=== PATIENT | female | born 1940 | race Caucasian/White ===

== ENCOUNTER 2017-04-12 13:11 | Inpatient (IN) | payer MEDICARE ==
[~2017-04-12] VITALS: Ht 167.6 cm; Wt 80.5 kg
[~2017-04-12 13:11] MED LIST: AXERT6.25 MG PO; CARISOPRODOL 3350 MG PO; CELEXA40 MG PO; HYDROCODON-ACE1 EAC8 PO; PHENERGAN50 MG PO; PRILOSEC 20 MG20 MG PO; TOPRIMATE PO
[2017-04-12 13:29] VITALS: BP 168/86
[2017-04-12] MEDS ORDERED: TOPAMAX 100 MG100 MG PO (13:33)
[2017-04-12 15:38] LABS: HEMATOCRIT 50.5 % (37.0-47.0); HEMOGLOBIN 16.4 gm/dL (12.0-15.0); MCH 30.5 pg (26.0-34.0); MCHC 32.4 g/dL (28.0-37.0); MCV 94.3 fL (80.0-100.0); MPV 6.8 fl. (7.2-11.1); NUCLEATED RBCS 0 /100WBC; PLATELET COUNT* 390 thou/uL (150-400); RBC 5.36 mil/uL (4.20-5.00); RDW-CV 13.8 % (10.5-14.5); WBC 16.4 thou/uL (4.0-11.0)
[2017-04-12 15:49] LABS: APTT 28.2 Seconds (25.0-31.3); INR 1.1; PROTIME 10.8 Seconds (9.20-11.50)
[2017-04-12 15:52] LABS: CALCIUM 9.2 mg/dL (8.5-10.1); POTASSIUM 3.7 mmol/L (3.5-5.1)
[2017-04-12 15:55] LABS: ALBUMIN 4.1 g/dL (3.4-5.0); TOTAL BILIRUBIN 0.2 mg/dL (<0.1-1.0); TOTAL PROTEIN 8.1 g/dL (6.4-8.2)
[2017-04-12 16:06] LABS: ABSOLUTE LYMPHOCYTES 1.1 thou/uL (0.8-5.3); ABSOLUTE MONOCYTES 0.7 thou/uL (0.0-1.2); ABSOLUTE NEUTROPHILS 14.6 thou/uL (1.6-8.1)
[2017-04-12 16:08] LABS: PLATELET ESTIMATE ADEQUATE
[2017-04-12 21:50] VITALS: BP 164/107
[2017-04-13] VITALS (18 sets, daily range): BP systolic 97–159; BP diastolic 67–91
--- NOTE | 2017-04-13 01:08 | NUR ---
PATIENT ADMITTED TO UNIT AT APPROXIMATELY 2130. VSS, ALTHOUGH PULSE IS TACHY AND SLIGHTLY DECREASES 02 SATURATION. PATIENT PLACED ON 2L 02 VIA NASAL CANNULA. PATIENT ORIENTED TO ROOM AND POLICIES. FALL EDUCATION GIVEN AND FALL AGREEMENT SIGNED. PATIENT VERBALIZED UNDERSTANDING. ADMISSION ROUTINES IN PROGRESS AND ASSESSMENT CHARTED. NG TUBE TO RIGHT NARE IN PLACE TO LOW INTERMITTENT SUCTION WITH LIGHT GREEN COLORED DRAINAGE. PATIENT NEGATIVE FOR SEPSIS. PATIENT INSTRUCTED TO USE CALL LIGHT WHEN NEEDING ASSISTANCE. HOURLY ROUNDS TO BE MADE. WILL CONTINUE WITH PLAN OF CARE. NURSING TO CONTINUE MONITORING.
--- NOTE | 2017-04-13 03:30 | NUR ---
PATIENT HAS HAD C/O OF INCREASING ABDOMINAL PAIN AND TENDERNESS. BP DECREASED AT 97/73. PULSE TACHY AT 138. TEMP 97.4 AXILLARY AND DECREASED 02 SATURATION OF 88% ON 2L AND INCREASED OXYGEN. RESPIRATIONS 20. PATIENTS EXTREMITIES WERE COLD TO TOUCH AND LIPS LOOKED ASHY BLUE IN COLOR. PATIENTS LOWER ABDOMINAL AND STACEY AREA WERE A DARK PURPLE BLOTCHY COLOR. NG TO RIGHT NARE IN PLACE AND PATIENT HAS REMAINED NPO. RAPID RESPONSE WAS CALLED AT APPROXIMATELY 0315 D/T CHANGE IN CONDITION. DR. FISHER NOTIFIED OF PATIENT CHANGE IN CONDITION. NEW ORDERS GIVEN FOR LABS, KUB, FLUIDS AND FOR PATIENT TO BE TRANSFERRED TO ICU. PATIENT WAS TRANSFERRED TO ICU AT APPROXIMATELY 0400. PATIENTS NOTIFIED.
[2017-04-13 04:18] LABS: MCH 30.3 pg (26.0-34.0); MCHC 31.6 g/dL (28.0-37.0); MCV 95.9 fL (80.0-100.0); MPV 7.4 fl. (7.2-11.1); NUCLEATED RBCS 0 /100WBC; RBC 6.77 mil/uL (4.20-5.00); RDW-CV 14.9 % (10.5-14.5); WBC 22.7 thou/uL (4.0-11.0)
[2017-04-13 04:34] LABS: HEMOGLOBIN 20.5 gm/dL (12.0-15.0); PLATELET COUNT* 541 thou/uL (150-400)
[2017-04-13 04:36] LABS: HEMATOCRIT 64.8 % (37.0-47.0)
[2017-04-13 05:07] LABS: BE -17.3 mmol/L (-2 to +3); PO2 102.8 mmHg (75.0-100.0)
[2017-04-13 05:09] LABS: HCO3 9.7 mmol/L (22.0-26.0); pH 7.157 (7.340-7.450)
[2017-04-13 05:26] LABS: CALCIUM 8.7 mg/dL (8.5-10.1); POTASSIUM 4.2 mmol/L (3.5-5.1)
[2017-04-13 05:30] LABS: CREATININE 2.1 mg/dL (0.6-1.3)
[2017-04-13 05:55] LABS: CK-MB MASS 1.1 ng/mL (<0.5-3.6)
[2017-04-13 06:17] LABS: URINE BILIRUBIN NEGATIVE (Negative); URINE BLOOD 1+ (Negative); URINE CLARITY CLEAR; URINE COLOR YELLOW; URINE GLUCOSE-RANDOM NEGATIVE (Negative); URINE KETONES TRACE (Negative); URINE LEUKOCYTES-REFLEX NEGATIVE (Negative); URINE NITRITE-REFLEX NEGATIVE (Negative); URINE PROTEIN 1+ (Negative); URINE UROBILINOGEN 0.2 E.U./dl (0.2-1.0)
[2017-04-13 06:24] LABS: ABSOLUTE LYMPHOCYTES 0.7 thou/uL (0.8-5.3); ABSOLUTE MONOCYTES 1.6 thou/uL (0.0-1.2); ABSOLUTE NEUTROPHILS 20.4 thou/uL (1.6-8.1); ANISOCYTOSIS 1+; PLATELET ESTIMATE INCREASED; POIKILOCYTOSIS 1+
[2017-04-13 06:34] LABS: BACTERIA-REFLEX 1-9 Few /HPF (None Seen); CRYSTALS None Seen /LPF (None Seen); FINE GRANULAR CASTS 0-3 Few /LPF (None Seen); HYALINE CASTS 4-10 Moderate /LPF (None Seen); MUCUS 4-6 Moderate strn/LPF (None Seen); SQUAMOUS 0-3 Few /LPF (0-3); URINE RBC 3-10 Few /HPF (0-2); URINE WBC-REFLEX 0-5 Rare /HPF (0-5)
--- NOTE | 2017-04-13 07:38 | NUR ---
PT TRANSFERRED TO ICU BED [address]POKE [address] CASTRO, SURGERY RESIDENT, ORDERS RECEIVED FOR MULTIPLE LABS AND IV BENADRYL X1, GIVEN ORDERED. CRITICAL ABG RESULTS AND MULTIPLE OTHER CRITICAL RESULTS WERE CALLED TO DR FISHER, ORDERS RECEIVED. PT RECEIVED 2L NS BOLUS AND 2 AMPS BICARB IVP. SEPSIS PROTOCOL INITIATED. CONSENT OBTAINED FOR PLACEMENT OF CENTRAL LINE. DR CASTRO IN EARLY THIS AM TO EVALUATE PTS STATUS, DECISION MADE TO TAKE PT TO OR FOR EXPLORATORY LAPAROTOMY HE DISCOVERED THE DISTENTION AND FIRMNESS OF HER ABDOMEN HAD INCREASED SINCE HIS PREVIOUS EXAMINATION. DR GARCIA ARRIVED TO UNIT SHORTLY THEREAFTER, SURGICAL CONSENT OBTAINED. PT RATED ABD PAIN 10/10, TREATED WITH PRN FENTANYL WITH LITTLE RELIEF OBTAINED. 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 PT LEFT THE ICU AT APPROXIMATELY 0715. AND DAUGHTER AT BEDSIDE, COMFORT AND EDUCATION GIVEN.
--- NOTE | 2017-04-13 07:57 | NUR ---
PT LEFT FOR SURGERY AT 0730. WILL INITIATE SEPSIS PROTOCOL UPON ARRIVAL BACK TO THE ICU. CENTRAL LINE WILL BE PLACED IN THE OR.
[2017-04-13 10:12] LABS: APTT 34.2 Seconds (25.0-31.3); INR 1.2; PROTIME 11.5 Seconds (9.20-11.50)
[2017-04-13 10:42] LABS: MAGNESIUM 1.6 mg/dL (1.8-2.4); PHOSPHORUS* 4.7 mg/dL (2.5-4.9)
[2017-04-13 11:54] LABS: HCO3 15.1 mmol/L (22.0-26.0); PCO2 31.8 mmHg (35.0-45.0); PO2 87.1 mmHg (75.0-100.0)
[2017-04-13 11:55] LABS: pH 7.294 (7.340-7.450)
--- NOTE | 2017-04-13 12:06 | NUR ---
INTERDISICPLINARY ROUNDS: MET WITH PT, SPOUSE AND 2 CHILDREN. PT LIVES WITH SPOUSE. SHE HAS BEEN FAIRLY INDEPENDENT WITH ADLS AT HOME. SHE IS ABLE TO AMBULATE WITH WALKER, SHOWER HERSELF. SPOUSE ASSISTS WITH DRESSING. SPOUSE DOES COOKING, LIGHT HOUSEKEEPING AND DRIVING. SPOUSE STATES PT CAN BE 'NEEDY.' THEY ARE INTERESTED IN SNF. PT HAS BEEN TO SNF IN THE PAST AT THE [facility] BUT PREFERS NOT TO RETURN THERE. SPOUSE HAS BEEN TO [place]. GAVE OPTIONS AND THEY ARE INTERESTED IN 1) [facility] 2) [facility]. CALLED AND FAXED INITIAL REFERRAL TO [facility]. WILL FOLLOW
[2017-04-13 12:43] LABS: ABSOLUTE BASOPHILS 0.1 thou/uL (0.0-0.2); ABSOLUTE LYMPHOCYTES 1.6 thou/uL (0.8-5.3); ABSOLUTE MONOCYTES 2.1 thou/uL (0.0-1.2); ABSOLUTE NEUTROPHILS 16.2 thou/uL (1.6-8.1); BASOPHILS 0.3 %; HEMATOCRIT 50.3 % (37.0-47.0); LYMPHOCYTES 8.1 %; MCH 30.8 pg (26.0-34.0); MCHC 32.7 g/dL (28.0-37.0); MCV 94.1 fL (80.0-100.0); MONOCYTES 10.5 %; MPV 6.8 fl. (7.2-11.1); NUCLEATED RBCS 0 /100WBC; POLYS 81.1 %; RBC 5.34 mil/uL (4.20-5.00); RDW-CV 14.1 % (10.5-14.5); WBC 19.9 thou/uL (4.0-11.0)
[2017-04-13 12:46] LABS: HEMOGLOBIN 16.4 gm/dL (12.0-15.0); PLATELET COUNT* 375 thou/uL (150-400)
[2017-04-13 12:55] LABS: ALBUMIN 2.2 g/dL (3.4-5.0); CALCIUM 6.8 mg/dL (8.5-10.1); CREATININE 1.8 mg/dL (0.6-1.3); POTASSIUM 4.1 mmol/L (3.5-5.1); TOTAL BILIRUBIN 0.2 mg/dL (<0.1-1.0)
--- NOTE | 2017-04-13 17:04 | NUR ---
PT SEES DR. DAVID US GYNECOLOGY-ONCOLOGY AT [facility].
[2017-04-13 17:27] LABS: ABSOLUTE LYMPHOCYTES 0.9 thou/uL (0.8-5.3); ABSOLUTE MONOCYTES 1.5 thou/uL (0.0-1.2); ABSOLUTE NEUTROPHILS 13.9 thou/uL (1.6-8.1); BASOPHILS 0.1 %; HEMATOCRIT 48.3 % (37.0-47.0); LYMPHOCYTES 5.5 %; MCHC 33.2 g/dL (28.0-37.0); MCV 93.6 fL (80.0-100.0); MONOCYTES 9.2 %; MPV 6.9 fl. (7.2-11.1); NUCLEATED RBCS 0 /100WBC; PLATELET COUNT* 311 thou/uL (150-400); POLYS 85.2 %; RBC 5.16 mil/uL (4.20-5.00); RDW-CV 14.3 % (10.5-14.5); WBC 16.3 thou/uL (4.0-11.0)
[2017-04-13 17:37] LABS: ALBUMIN 2.3 g/dL (3.4-5.0); CALCIUM 7.3 mg/dL (8.5-10.1); CREATININE 1.9 mg/dL (0.6-1.3); POTASSIUM 4.2 mmol/L (3.5-5.1); TOTAL BILIRUBIN 0.1 mg/dL (<0.1-1.0); TOTAL PROTEIN 5.1 g/dL (6.4-8.2)
--- NOTE | 2017-04-13 18:22 | NUR ---
PT'S ASSESSMENT CHARTED. SHE IS TACHYCARDIC ANYWHERE FROM 120-140. IV BOLUS GIVEN. RECTAL TYLENOL GIVEN X1 FOR A T-MAX OF 102.1. PAIN 8-10/10 NOT CONTROLLED WITH PRN FENTANYL. RESPIRATORY STATUS IMPROVED FROM 10L VIA MASK TO HIGH FLOW CANNULA. PT'S O2 SATURATION 96-99% PER THE HIGH FLOW CANNULA. PT DENIES SOA. BLOOD PRESSURE'S ARE IMPROVING WITH IV BOLUS, HR AT 120 CURRENTLY. NO OTHER COMPLAINTS. COKER WITH LITTLE OUTPUT. CHAMP DRAIN 110 BETWEEN THE 2. WILL CONTINUE TO MONITOR.
[2017-04-14] VITALS (17 sets, daily range): BP systolic 139–168; BP diastolic 47–91
[2017-04-14 05:03] LABS: BE -8.6 mmol/L (-2 to +3); HCO3 15.3 mmol/L (22.0-26.0); PCO2 28.5 mmHg (35.0-45.0); PO2 81.4 mmHg (75.0-100.0); pH 7.349 (7.340-7.450)
--- NOTE | 2017-04-14 06:00 | NUR ---
PATIENT SLOWLY PROGRESSING TOWARDS GOALS. ABD WOUND SITE INTACT. J TUBE DRAINAGE SEROSANGUINEOUS. ABD SOFT. PT CONTINUES TO HAVE PAIN AND STATES THAT THE PAIN MEDICATION IS NOT HELPING DISPITE PAIN MEDICATION BEING GIVEN Q2H. PT TEMP STAYED BETWEEN IN THE 100.0-100.8. NSR. O2 WNL. WILL CONTINUE TO MONITOR CLOSELY. CALL LIGHT WITH PT, FALL PRECAUTIONS IN PLACE.
[2017-04-14 06:29] LABS: ALBUMIN 1.9 g/dL (3.4-5.0); CALCIUM 6.3 mg/dL (8.5-10.1); CREATININE 1.4 mg/dL (0.6-1.3); POTASSIUM 3.9 mmol/L (3.5-5.1); TOTAL BILIRUBIN 0.2 mg/dL (<0.1-1.0); TOTAL PROTEIN 5.1 g/dL (6.4-8.2)
[2017-04-14 07:51] LABS: ABSOLUTE LYMPHOCYTES 1.2 thou/uL (0.8-5.3); ABSOLUTE NEUTROPHILS 12.3 thou/uL (1.6-8.1); BASOPHILS 0.3 %; HEMATOCRIT 42.2 % (37.0-47.0); LYMPHOCYTES 7.8 %; MCH 30.5 pg (26.0-34.0); MCHC 32.8 g/dL (28.0-37.0); MCV 92.9 fL (80.0-100.0); MONOCYTES 12.7 %; MPV 6.8 fl. (7.2-11.1); NUCLEATED RBCS 0 /100WBC; PLATELET COUNT* 267 thou/uL (150-400); POLYS 79.2 %; RBC 4.55 mil/uL (4.20-5.00); RDW-CV 14.1 % (10.5-14.5); WBC 15.5 thou/uL (4.0-11.0)
[2017-04-14 07:52] LABS: HEMOGLOBIN 13.9 gm/dL (12.0-15.0)
--- NOTE | 2017-04-14 12:44 | CON ---
[address] [address] CONSULTATION Name: MAXIME JESSICA Room: [address] IN M.R.#: [id number] Admission: 04/12/17 Attend Phys: Shaheen Galicia MD Discharge: Date of : 41 Report #: [id number] THIS REPORT FOR: //name// CC: Shaheen Cherry Page DATE OF SERVICE: 04/13/2017 INFECTIOUS DISEASE CONSULTATION ATTENDING PHYSICIAN: Shaheen Galicia MD REASON FOR EVALUATION: Postoperative fevers with lactic acidemia. HISTORY OF PRESENT ILLNESS: Chart reviewed, patient examined. This is a 76-year-old woman with fairly significant medical history, has issues with irritable bowel syndrome, who presented with a roughly 1-2 week history of abdominal related pain. Apparently, this was associated with constipation. It is notable she has had variability in her bowel movements, had gone several days without movement. She was evaluated including imaging, which raised question of a distal small-bowel obstruction. She was found to have leukocytosis, lactic acidemia actually had improved with hydration due to absence of resolution of signs and symptoms. She was taken to surgery, underwent lysis of adhesions. Initial report, there was no evidence of compromise of the bowel wall. Postop course was complicated by some fevers, increase in lactic acid and continued elevation of white blood cells. She was empirically started on combination antimicrobial therapy including ciprofloxacin, metronidazole, and vancomycin. She is seen postop and somnolent. Discussed with her family, it is not clear that she has had significant fevers prior to this. ALLERGIES: LISTED TO PENICILLINS. CURRENT MEDICATIONS: Include the above-noted antibiotics, ciprofloxacin, vancomycin and Flagyl, p.r.n. analgesics, antiemetics, and pantoprazole. PAST MEDICAL HISTORY: Hypertension, history of migraines, severe arthritis, previous vulvar cancer with radiation, history of depression. SOCIAL HISTORY: Nonsmoker. Occasional ethanol. FAMILY HISTORY: Noncontributory. REVIEW OF SYSTEMS: Not reliably obtained. PHYSICAL EXAMINATION: GENERAL: She appears quite ill, acute on chronic. [place] [address] CONSULTATION Name: MAXIME JESSICA Room: [address] [place] [facility]#: [id number] Admission: 04/12/17 Attend Phys: Shaheen Galicia MD Discharge: Date of : 41 Report #: [id number] opens her eyes. There is very little effort to communicate. VITAL SIGNS: Temperature 99, pulse 137, respirations 21, blood pressure 118/78. SKIN: Warm, dry. No appreciated rashes. NECK: Supple. LUNGS: Scattered coarse breath sounds. HEART: Regular. I do not appreciate a murmur. ABDOMEN: Notable for a wound VAC in place, has bilateral CHAMP drains. GENITOURINARY: Deferred. RECTAL: Deferred. LABORATORY DATA: ABGs: pH 7.294, pCO2 of 31.8, pO2 of 87.1 that is on Ventimask at 7 liters. Lactic acid 4.2. Chest x-ray, some mild pulmonary congestion and interstitial infiltrates in the left perihilar region, atelectasis or infiltrate in the left lung base. Blood cultures sterile thus far. CT abdomen and pelvis preop showed dilated fluid-filled small bowel loops to the distal small bowel and question of obstruction, this was confirmed at surgery. ASSESSMENT: Fevers in a patient with a diagnosis of small bowel obstruction, although there is no evidence of peritonitis or breach in the BAL at least during the time of surgery. We will continue empiric antimicrobial therapy due note she is at risk for other infectious complications, especially with her altered mental status, worried about aspiration, and pneumonitis. She is requiring excess supplemental oxygen at this point. I do not think she has got a reasonable expectation of a good cough response to clear. We will have to monitor expectantly and encourage her, when she is able, to add incentive spirometer and also monitor for other evidence of pyogenic infection. She should have a decent coverage at this point. <ELECTRONICALLY SIGNED> By: Sagar Sandhu MD 04/14/17 1244 1247 [id number] Sandhu MD /nt
--- NOTE | 2017-04-14 17:31 | EKG ---
[place] [address] ELECTROCARDIOGRAM REPORT Name: MAXIME JESSICA Room: [address] ADM IN .R.#: [id number] Admission: 04/12/17 Attend Phys: Shaheen Galicia MD Discharge: Date of : 41 Report #: [id number] THIS REPORT FOR: //name// [facility] Test Date: 2017-04-13 Test Time: 03:28:50 Pat Name: MAXIME JESSICA Department: Room: [address] Gender: F Greens Cutter: [facility] : 1940 Requested By: Shaheen Galicia Order Number: [id number] Reading MD: Andrea Desir Measurements Intervals Anabel Rate: 136 P: 2 OK: 130 QRS: 51 QRSD: 83 T: 44 QT: 296 QTc: 446 Interpretive Statements Sinus tachycardia ST elev, probable normal early repol pattern No previous ECG available for comparison Electronically Signed On 04-14-2017 17:31:23 YARDAGE CONTROL OPERATOR FORMING by Andrea Desir [email or web address] <ELECTRONICALLY SIGNED> By: Andrea Desir MD, [facility] 04/14/17 1731 0328 0328 Andrea Desir MD, FACC /EPI
--- NOTE | 2017-04-14 17:41 | EKG ---
[place] [address] ELECTROCARDIOGRAM REPORT Name: MAXIME JESSICA Room: [address] ADM IN .R.#: [id number] Admission: 04/12/17 Attend Phys: Shaheen Galicia MD Discharge: Date of : 41 Report #: [id number] THIS REPORT FOR: //name// [facility] Test Date: 2017-04-14 Test Time: 12:17:29 Pat Name: MAXIME EJSSICA Department: Room: [address] Gender: F Trade Show Manager: abby : 1940 Requested By: Andrea Desir Order Number: [id number] Chevy MD: Andrea Desir Measurements Intervals [place] Rate: 184 P: -23 IL: 56 QRS: 49 QRSD: 75 T: 242 QT: 223 QTc: 391 Interpretive Statements Supraventricular tachycardia Abnormal R-wave progression, early transition Repolarization abnormality, prob rate related No previous ECG available for comparison Electronically Signed On 04-14-2017 17:41:34 PAYMENT ANALYST by Andrea Desir [email or web address] <ELECTRONICALLY SIGNED> By: Andrea Desir MD, [facility] 04/14/17 1741 1217 121 Andrea Desir MD, [facility] /EPI
[2017-04-14 22:09] LABS: OBSERVED RETIC COUNT 1.5 % (0.6-2.6)
[2017-04-15] VITALS (14 sets, daily range): BP systolic 115–159; BP diastolic 51–94
[2017-04-15 03:29] LABS: NUCLEATED RBCS 0 /100WBC; WBC 9.9 thou/uL (4.0-11.0)
[2017-04-15 03:30] LABS: ABSOLUTE LYMPHOCYTES 1.1 thou/uL (0.8-5.3); ABSOLUTE MONOCYTES 0.9 thou/uL (0.0-1.2); ABSOLUTE NEUTROPHILS 7.8 thou/uL (1.6-8.1); BASOPHILS 0.1 %; HEMATOCRIT 33.5 % (37.0-47.0); HEMOGLOBIN 11.2 gm/dL (12.0-15.0); LYMPHOCYTES 11.1 %; MCH 31.2 pg (26.0-34.0); MCHC 33.5 g/dL (28.0-37.0); MCV 93.3 fL (80.0-100.0); MONOCYTES 9.3 %; MPV 6.9 fl. (7.2-11.1); PLATELET COUNT* 191 thou/uL (150-400); POLYS 79.5 %; RBC 3.59 mil/uL (4.20-5.00); RDW-CV 14.3 % (10.5-14.5)
[2017-04-15 03:36] LABS: PREALBUMIN 14.3 mg/dL (18.0-35.7)
[2017-04-15 03:48] LABS: ALBUMIN 2.1 g/dL (3.4-5.0); CALCIUM 7.2 mg/dL (8.5-10.1); MAGNESIUM 1.7 mg/dL (1.8-2.4); POTASSIUM 3.4 mmol/L (3.5-5.1); TOTAL BILIRUBIN 0.1 mg/dL (<0.1-1.0); TOTAL PROTEIN 5.1 g/dL (6.4-8.2)
--- NOTE | 2017-04-15 06:29 | NUR ---
PATIENT PROGRESSING SLOWLY. TACHYCARDIC, O2 97 ON 4L NC. PATIENT PAIN MANAGEMENT IMPROVING. PATIENT HAS INCREASE ANXIETY OVER BEING IN THE HOSPITAL. WILL PASS ON REPORT ABOUT GETTING SOME ATIVAN. TURNED MONITORS TO PRIVACY MODE IN ROOM TO HELP W/ PT ANXIETY. SEEMED TO IMPROVE. PT SURGICAL WOUND INTACT NO ACUTE CHANGES. CHAMP DRAIN TOTAL 150 SANGUINOUS. CARDIZEM GTT AT BEDSIDE WAS NOT USED DURING THE NIGHT. WILL CONTINUE TO MONITOR CLOSELY. Q2H TURNS GIVEN, ICE CHIPS ONLY. CALL LIGHT IN PLACE. WILL CONTINUE MONITORING .
--- NOTE | 2017-04-15 07:46 | NUR ---
ASSUMED CARE OF PT AROUND 0715 THIS AM. REFER TO ASSESSMENT. PT STATES SHE IS HAVING A DIFFICULT TIME 'COUGHING STUFF UP'. PT ENCOURAGED TO USE IS FREQUENTLY WITH FREQUENT TCDB. WILL ATTEMPT TO DANGLE ON SIDE OF BED AND POSSIBLY TRANSFER TO CHAIR THIS SHIFT. NG DRAINING WITHOUT DIFFICULTY. COKER TO DEPENDENT DRAINAGE. PT ON 4L/NC OXYGEN. SATS WNL. VSS. TELE ST WITH RATE IN THE LOWER 100'S. PT CONTINUES NPO. NO OTHER CONCERNS AT THIS TIME. CLWR. WCTM.
--- NOTE | 2017-04-15 09:33 | NUR ---
PT ABLE TO SIT ON SIDE OF BED FOR 10 MINUTES THIS AM. PT REPORTED PAIN AND WEAKNESS. OFFERED TO HELP PT TO RECLINER, AND PT STATED NOT READY AT THIS TIME. WILL ATTEMPT THIS AFTERNOON. NO OTHER CONCERNS AT THIS TIME. CLWR. WCTM.
--- NOTE | 2017-04-15 11:22 | CON ---
[address] [address] CONSULTATION Name: MAXIME JESSICA Room: [address] IN .R.#: [id number] Admission: 04/12/17 Attend Phys: Shaheen Galicia MD Discharge: Date of : 41 Report #: [id number] THIS REPORT FOR: //name// CC: Shaheen Abel REASON FOR CONSULTATION: Acute postop respiratory failure. HISTORY OF PRESENT ILLNESS: The patient is a 76-year-old female patient who was admitted to the hospital on 04/12/2017 with a chief complaint of abdominal pain associated with nausea in addition to constipation. She tried Dulcolax without any help. She actually had lactic acidosis and yesterday her condition deteriorated. She was taken to the OR where she underwent exploratory laparotomy with lysis of adhesion. Postop, she required significant amount of oxygen. She was on 10 liters high-flow oxygen and Pulmonary Services were consulted. The patient told me she smoked only for 2 years that was long time ago. As a child, she remembered missing schools multiple times because of asthma, although as an adult, she did not have much problem with asthma, although on average per year, she would have one attack of asthma and she would require a rescue inhaler, but no steroids. Never been hospitalized for asthma-related symptoms. Today, she feels better. She has a weak cough. She reported abdominal pain is better. She is currently n.p.o. She also had vulvar ____ and she is being evaluated by Gynecology and Oncology was consulted too. PAST SURGICAL HISTORY: Includes appendectomy, hysterectomy, history of trauma in the brain treated surgically. PAST MEDICAL HISTORY: She had some sickle cell disease, head trauma, skull fracture, appendicitis, migraine, deviated septum. SOCIAL HISTORY: No significant history of smoking. Does not drink alcohol. Does not abuse drugs. FAMILY HISTORY: Positive for cancer in both parents. REVIEW OF SYSTEMS: Upon hospitalization, she denied fever or chills and she had abdominal pain, although that has been improving. She had a history of peptic ulcer disease. She denied any headache or sore throat at this point. The rest of the review of systems was negative. ALLERGIES: PENICILLIN. PHYSICAL EXAMINATION: VITAL SIGNS: She is on 8 liters oxygen with saturation 97% during my evaluation. She is still having a fever with a T-max of 38.1 overnight. GENERAL: Lying in bed, comfortable overall, speaks in full sentences, [place] [address] CONSULTATION Name: MAXIME JESSICA Room: [address] IN [facility]#: [id number] Admission: 04/12/17 Attend Phys: Shaheen Galicia MD Discharge: Date of : 41 Report #: [id number] HEENT: Head is normocephalic, atraumatic. Pupils are equal and reactive to light. Extraocular movements are intact. Not pale or jaundiced sclerae. Ear looks healthy and normal. Nasal cavity, patent passages. Oral cavity, moist mucous membranes. Mallampati of 2. NECK: Supple. No palpable lymph node. No palpable thyroid. Trachea is central. CHEST: Diminished air movement at the bases. Some crackles at the bases, no rhonchi. No wheezes. HEART: S1, S2, no murmur. ABDOMEN: Postsurgical, she had a clean dressing, sluggish bowel sounds, tenderness to deep palpation. EXTREMITIES: Lower extremities, no edema, no calf tenderness. MUSCULOSKELETAL: No deformities. No contracture. PSYCHIATRIC: Mood and affect appropriate, good insight and judgment, calm and quiet. NEUROLOGIC: Moving 4 extremities spontaneously. No focal weakness. LYMPHATICS: No palpable lymph node. SKIN: Normal for age and race, no rash. LABORATORY DATA: Her chest x-ray showed bilateral atelectasis, possible vascular congestion. Her creatinine is 1.4, which is improving. Sodium 148, potassium 3.9. Her ABGs today 7.34/28/81 which is better than yesterday, which showed some metabolic acidosis. Her INR is 1.2. White blood count 15.5, hemoglobin 13.9 and platelets of 267. CURRENT MEDICATIONS: Include pantoprazole, ciprofloxacin, vancomycin, morphine, Tylenol, DuoNebs every 4 hours, Flagyl, hydralazine. IMPRESSION: 1. Acute hypoxic respiratory failure. 2. History of asthma. 3. Atelectasis and pulmonary infiltrate. 4. Possible fluid overload. 5. Status post abdominal surgery for small bowel obstruction. 6. Sepsis, improving. The patient with a history of asthma. Although I am not hearing significant wheezes, but will optimize her lung function. Continue scheduled nebulization treatment. I will put her on steroids daily. Continue the antibiotics. To the incentive spirometry, I added flutter valve. I encouraged getting her out of bed and starting ambulating her once okay from surgical point of view. We will follow along with you. We will try to wean the oxygen down. Discussed with the nurse and the patient. [address] [address] CONSULTATION Name: MAXIME JESSICA Room: 00[address] [facility]#: [id number] Admission: 04/12/17 Attend Phys: Shaheen Galicia MD Discharge: Date of : 41 Report #: [id number] Thank you for the consult. <ELECTRONICALLY SIGNED> By: Marcos Velásquez MD 04/15/17 1122 0930 [id number] Velásquez MD /irene
--- NOTE | 2017-04-15 13:31 | OP ---
[address] [address] OPERATIVE REPORT Name: ARACELYMAXIME P Room: [address] IN [facility]#: [id number] Admission: 04/12/17 Attend Phys: Shaheen Galicia MD Discharge: Date of : 41 Report #: [id number] THIS REPORT FOR: //name// CC: Shaheen Abel DATE OF SERVICE: 04/13/2017 PREPROCEDURE DIAGNOSIS: Small-bowel obstruction. POSTPROCEDURE DIAGNOSIS: Small-bowel obstruction secondary to adhesions in the right lower quadrant. FINDINGS: There was 1 dense adhesive band in the right lower quadrant, most likely secondary to previous appendectomy, which had caused a closed loop bowel obstruction, bowel was dusky but was otherwise uncompromised. It immediately pinkened up as soon as the adhesive band was lysed. SURGEON: Nahed Hopper DO COSURGEON: Philip Matthews DO. Surgeon's assistance was necessary as there was not a properly trained resident available. HOUSE WRECKER: Prabhu Kelly, PGY1. OPERATION PERFORMED: Exploratory laparotomy with release of small-bowel obstruction and lysis of adhesions, less than 30 minutes. ANESTHESIA: General endotracheal and local. ESTIMATED BLOOD LOSS: 10 DRAINS: Bilateral 19-Serbian Roscoe drains. SPECIMENS REMOVED: None. COMPLICATIONS: None. CONDITION: Guarded. DISPOSITION: ICU. HISTORY OF PRESENT ILLNESS: The patient is a very pleasant 76-year-old female who presented to the ER last night with a complaint of some moderate abdominal pain, associated with nausea and vomiting. A full workup was completed which showed an elevated white count and some dehydration. CT scan was positive for [facility] [address] [place] [address] OPERATIVE REPORT Name: MAXIME JESSICA Mio Room: [address] IN [facility].#: [id number] Admission: 04/12/17 Attend Phys: Shaheen Galicia MD Discharge: Date of : 41 Report #: [id number] possible partial small-bowel obstruction. NG tube was placed and the patient was kept n.p.o. and was started on IV fluid resuscitation. In the evening, she appeared to be very comfortable. Around 4:30 this morning; however, she underwent an acute change with acutely increasing abdominal pain and tachycardia. The patient was immediately assessed and was taken to the ICU. On our assessment, she had had a definite change in her abdominal exam. She was then taken immediately to the operating room. Plan for surgery was for exploratory laparotomy, possible bowel resection, and possible ostomy. Risks discussed included bleeding, infection, pain, scar formation, injury to bowel or other intraabdominal organs, need for bowel resection, need for ostomy, need for an open abdomen, need for further surgery and need for prolonged ventilation and risks of general anesthesia. The patient understood these risks and elected to proceed. DESCRIPTION OF PROCEDURE: The patient was brought to the operating room. She was laid supine on the operating room table. SCDs were placed on bilateral lower extremities. She was already on Cipro and Flagyl in the preoperative period and had also been started on vancomycin. General endotracheal anesthesia was induced by Anesthesia without difficulty. The patient already had an NG tube and a Lomeli in place. The abdomen was prepped and draped in a standard sterile fashion. Timeout was performed to verify patient and procedure. 10 mL of 0.5% Marcaine were injected along the midline. Generous midline incision was made with a 10 blade. Cautery was used for hemostasis. Cautery was then also used to dissect down to the fatty tissues until fascia was identified. Fascia was nicked and then elevated between 2 Kochers. Fascia was then incised, moving superior to inferior. Peritoneum was gently entered using a Evelia clamp. A large amount of clear fluid was then suctioned away. Peritoneum was also opened in the superior and inferior directions. As soon as we entered the abdomen, it was obvious that there was a compromised loop of small bowel in the right lower quadrant. This was gently grasped and elevated with very minimal manipulation of the bowel. Dense band of omental adhesion was then identified in the right lower quadrant, which had caused closed loop bowel obstruction. This adhesion was taken down using a LigaSure and the small bowel was immediately released from its obstruction. It initially did appear to be somewhat dusky, but it was gently covered with some warm, moistened laps and allowed to re-perfuse while we continued our exploration of the abdomen. Any fluid was completely suctioned away. Colon was completely palpated from the rectum to the cecum. There was some stool noted, but no masses otherwise. NG tube was palpated in the stomach, it appeared to be in good position. Liver was palpated, there were no masses. Small bowel was then run from the ligament of Treitz to the TI. The proximal small bowel was all pink and well perfused. The very distal small bowel at the terminal ileum is the area where the closed obstruction had been. It had immediately pinkened upon release of the adhesive band and appeared to be no longer compromised. There was no sign of any perforation or other injury to the small bowel. The abdomen was then irrigated with 4 liters of warm saline until clear. Small bowel was again run from ligament of Treitz to the terminal ileum. [place] [id number] OPERATIVE REPORT Name: MAXIME JESSICA Room: [address] IN ..#: [id number] Admission: 04/12/17 Attend Phys: Shaheen Galicia MD Discharge: Date of : 41 Report #: [id number] There were no further injuries identified and the bowel appeared now be pink and well perfused. It was decided at that point to not to proceed with a bowel resection. Small bowel was gently returned into the abdomen. Two 19-Serbian Roscoe drains were placed in the bilateral gutters. Kochers were then placed on the fascia. Fascia was closed with running #1 PDS with excellent approximation of the fascia. Subcutaneous tissues were approximated using a 3-0 Vicryl and skin was closed with a stapler. Skin was then cleansed and covered with a Prevena VAC. Drains were covered with 4 x 4s, and paper tape. The patient was then allowed to awaken from anesthesia and was extubated. Central line was placed prior to leaving to the operating room. Please see the separate dictation for this procedure report. The patient was then taken to the ICU for recovery in guarded condition. Counts were correct x 2 at the conclusion of the case. <ELECTRONICALLY SIGNED> By: Nahed Hopper DO 04/15/17 1331 1045 [id number] Hopper DO /nt
--- NOTE | 2017-04-15 17:20 | NUR ---
I have reviewed the documentation by ROXANNE MENJIVAR from 04/15/17 to 04/15/17 and I concur with it. HAILEY TALLEY
[2017-04-16] VITALS (18 sets, daily range): BP systolic 112–155; BP diastolic 51–94
[2017-04-16 04:22] LABS: ABSOLUTE LYMPHOCYTES 0.8 thou/uL (0.8-5.3); ABSOLUTE MONOCYTES 0.5 thou/uL (0.0-1.2); BASOPHILS 0.1 %; HEMATOCRIT 29.2 % (37.0-47.0); HEMOGLOBIN 9.6 gm/dL (12.0-15.0); LYMPHOCYTES 12.4 %; MCH 30.8 pg (26.0-34.0); MCV 93.6 fL (80.0-100.0); MONOCYTES 7.9 %; MPV 6.6 fl. (7.2-11.1); NUCLEATED RBCS 0 /100WBC; PLATELET COUNT* 168 thou/uL (150-400); POLYS 79.6 %; RBC 3.12 mil/uL (4.20-5.00); RDW-CV 14.1 % (10.5-14.5); WBC 6.3 thou/uL (4.0-11.0)
[2017-04-16 04:47] LABS: ALBUMIN 1.9 g/dL (3.4-5.0); ALKALINE PHOSPHATASE 37 U/L (46-116); ANION GAP 4 mmol/L (7-16); BUN 19 mg/dL (7-18); CALCIUM 7.4 mg/dL (8.5-10.1); CHLORIDE 116 mmol/L (98-107); CO2 28 mmol/L (21-32); CREATININE 0.8 mg/dL (0.6-1.3); GLUCOSE 149 mg/dL (70-99); POTASSIUM 3.3 mmol/L (3.5-5.1); SGOT 14 U/L (15-37); SGPT 11 U/L (30-65); SODIUM 148 mmol/L (136-145); TOTAL PROTEIN 4.6 g/dL (6.4-8.2)
[2017-04-16 04:51] LABS: PREALBUMIN 14.9 mg/dL (18.0-35.7)
[2017-04-16 05:03] LABS: TOTAL BILIRUBIN < 0.1 mg/dL (<0.1-1.0)
--- NOTE | 2017-04-16 06:52 | NUR ---
ASSUMED PATIENT CARE AT 1900. MINOR COMPLAINTS OF PAIN. CONTROLLED WITH MEDICATION. K+ NOTED TO BE LOW. IV POTASSIUM HUNG THIS MORNING. IV PATENT AND INFUSING. HEARTRATE ACCELERATED TO 160BPM THROUGH THE NIGHT, NEW ORDERS RECEIVED FROM CARDIOLOGY. CATHETER PATENT. CHAMP DRAINS PATENT AND MIDLINE DRESSING C/D/I. WOUND VAC CONTINUES. SOME ANXIETY NOTED, CONTROLLED WITH MEDICATION. ALERT AND ORIENTED TIMES FOUR. PROCESS CONTROL SUPERVISOR COMPLETED DOCUMENTED
--- NOTE | 2017-04-16 08:06 | NUR ---
ASSUMED CARE OF PATIENT AFTER RECEIVING BEDSIDE REPORT. ASSESSMENT COMPLETED, VSS. PATIENT COMPLAINS OF SEVERE STOMACH PAIN. PATIENT ENCOURAGED TO USE IS AND PERFORM ACTIVE ROM WHILE IN BED. PATIENT ALSO ENCOURAGED TO PARTICIPATE MORE WITH PT AND OT. PATIENT DOWNGRADED TO TELE PER DR. FISHER. WAITER/WAITRESS TOURIST CLASS IN PLACE, SINUS TACHYCARDIA NOTED. BED ALARM ON. CALL LIGHT WITHIN REACH, USE REINFORCED. WILL CONTINUE TO MONITOR.
--- NOTE | 2017-04-16 12:00 | NUR ---
PT NOW TELE STATUS. ANTICIPATE PT WILL NEED SNF AT [place], REFERRAL SENT TO [facility] SEVERAL DAYS AGO PER 'S REQUEST. CALLED [facility] AND LEFT VM FOR HE IN ADMISSIONS, WITH UPDATE ON PT. CASE MGT TO CONTINUE TO FOLLOW.
--- NOTE | 2017-04-16 12:12 | NUR ---
PATIENT HAD REPEATEDLY ASKED FOR PAIN MEDICATION DESPITE RN EXPLAINING IT WAS TOO EARLY. RN DISCUSSED WITH DR. CASTRO PAIN ISSUES. WHEN PATIENT'S ARRIVED PATIENT BEGAN MOANING LOUDLY IN PAIN. PATIENT DESCRIBED IT PAIN LIKE HER STOMACH WOULD EXPLODE. RN EXAMINED THE STOMACH AND FOUND NO CHANGES FROM MORNING ASSESSMENT. PATIENT BECAME ANGRY AND DEMANDED TO SPEAK WITH THE DOCTOR AND THREATENED TO TRANSFER TO ANOTHER HOSPITAL. DR. CASTRO CAME TO BEDSIDE AND ORDERED ABDOMINAL SERIES. DOCTOR SPOKE AT LENGTH WITH THE PATIENT AND AT BEDSIDE AND EXPLAINED THE PAIN POSTOP. MORPHINE GIVEN. PATIENT NO LONGER COMPLAINING OF PAIN.
--- NOTE | 2017-04-16 15:45 | NUR ---
REPORT GIVEN TO TERESA DELGADO ON TELEMETRY. PATIENT IS STABLE. PAIN MEDICATION PROVIDED PRIOR TO TRANSFER. PATIENT'S BELONGINGS GO WITH PATIENT.
--- NOTE | 2017-04-16 19:10 | NUR ---
paitnet resting in bed. vital signs stable and patinet in noapparent dfistres at this time. abd wound with vac in place. hourly rounding for patient safety. neela to mc.
[2017-04-17] VITALS: BP 115/65
--- NOTE | 2017-04-17 03:45 | NUR ---
ASSUMED PT CARE AT 1930, PT IS A&OX4, ON 2L NC SATTING MID TO LOW 90'S. PT IS TRACING NSR/ST ON THE MONITOR. PT HAS BEEN REQUESTING PAIN MEDICATIONS THROUGHOUT THE SHIFT. WELL ANXIETY MEDICATIONS. PT HAS 2 CHAMP DRAINS WELL AN NG TUBE TO LIS. PT ALSO HAS A MIDLINE INCISION TO HER ABD WITH A PROVENA WOUND VAC. PT HAS COKER TO DD. DRAINING YELLOW URINE. PT IS NPO AT THIS TIME. PT STATES SHE IS STARTING TO FEEL GAS MOVE AROUND IN HER BELLY MORE. BS ARE STILL HYPO ACTIVE AT THIS TIME. BED IN LOW POSITION, CALL LIGHT IN REACH, BED ALARM ON, YELLOW ARM BAND AND SOCKS IN PLACE, HOURLY ROUNDING COMPLETED FOR PT SAFETY.
[2017-04-17 04:23] VITALS: BP 139/68
[2017-04-17 04:47] LABS: ABSOLUTE LYMPHOCYTES 1.4 thou/uL (0.8-5.3); ABSOLUTE MONOCYTES 0.7 thou/uL (0.0-1.2); ABSOLUTE NEUTROPHILS 7.3 thou/uL (1.6-8.1); BASOPHILS 0.1 %; HEMATOCRIT 30.2 % (37.0-47.0); HEMOGLOBIN 10.2 gm/dL (12.0-15.0); LYMPHOCYTES 14.6 %; MCH 31.4 pg (26.0-34.0); MCHC 33.7 g/dL (28.0-37.0); MCV 93.1 fL (80.0-100.0); MONOCYTES 7.7 %; MPV 6.9 fl. (7.2-11.1); NUCLEATED RBCS 0 /100WBC; PLATELET COUNT* 201 thou/uL (150-400); POLYS 77.6 %; RBC 3.25 mil/uL (4.20-5.00); RDW-CV 14.2 % (10.5-14.5); WBC 9.4 thou/uL (4.0-11.0)
[2017-04-17 04:53] LABS: ALBUMIN 2.1 g/dL (3.4-5.0); CALCIUM 7.6 mg/dL (8.5-10.1); CREATININE 0.9 mg/dL (0.6-1.3); POTASSIUM 3.5 mmol/L (3.5-5.1); TOTAL BILIRUBIN 0.2 mg/dL (<0.1-1.0); TOTAL PROTEIN 4.8 g/dL (6.4-8.2)
[2017-04-17 05:01] LABS: PREALBUMIN 18.6 mg/dL (18.0-35.7)
[2017-04-17 08:00] VITALS: BP 138/64
--- NOTE | 2017-04-17 08:00 | NUR ---
PT RESTING IN BED, APPEAR O X 4, DENIES CHEST PAIN,.SOB, C/O ABDOMINAL TENDERNESS. POST ABDOMINAL SUREGRY. CHAMP DRAIN X 2, NG TO LIS, COKER TO DD, T TLC , IVF, RTEPORTS ADEQ PAIN CONTROL C IV PAIN RX
[2017-04-17 15:30] VITALS: BP 182/95
--- NOTE | 2017-04-17 18:29 | NUR ---
pt progressing towards goal. < 50 cc out NG tube today , remains to lIS, C/O abdominal pain.rx q 2-3 hours. up in chair today approx 2 hours, in NRS SCDS, Kadeem DRAIN X 2,. COKER, IVF
[2017-04-17 20:00] VITALS: BP 161/72
[2017-04-18] VITALS (7 sets, daily range): BP systolic 144–168; BP diastolic 78–94
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
[2017-04-18 04:51] LABS: ABSOLUTE LYMPHOCYTES 1.5 thou/uL (0.8-5.3); ABSOLUTE NEUTROPHILS 7.9 thou/uL (1.6-8.1); EOSINOPHILS 0.4 %; HEMATOCRIT 31.4 % (37.0-47.0); HEMOGLOBIN 10.6 gm/dL (12.0-15.0); LYMPHOCYTES 14.1 %; MCHC 33.7 g/dL (28.0-37.0); MCV 92.2 fL (80.0-100.0); MONOCYTES 9.6 %; NUCLEATED RBCS 0 /100WBC; PLATELET COUNT* 228 thou/uL (150-400); POLYS 75.9 %; RBC 3.41 mil/uL (4.20-5.00); RDW-CV 14.1 % (10.5-14.5); WBC 10.4 thou/uL (4.0-11.0)
[2017-04-18 05:08] LABS: ALBUMIN 2.1 g/dL (3.4-5.0); CALCIUM 7.7 mg/dL (8.5-10.1); CREATININE 0.8 mg/dL (0.6-1.3); POTASSIUM 3.2 mmol/L (3.5-5.1); TOTAL BILIRUBIN 0.3 mg/dL (<0.1-1.0); TOTAL PROTEIN 4.7 g/dL (6.4-8.2)
[2017-04-18 06:32] LABS: CALCIUM 7.7 mg/dL (8.5-10.1); CREATININE 0.8 mg/dL (0.6-1.3); MAGNESIUM 1.8 mg/dL (1.8-2.4); POTASSIUM 3.2 mmol/L (3.5-5.1)
--- NOTE | 2017-04-18 10:00 | NUR ---
ASSUMED PT CARE AT 0730, FULL ASSESMENT DONE CHARTED. PT A/O X2-3, VERY DROWSY THIS AM. PT SLEEPING AFTER RECIEVING AM DOSE OF PAIN MEDS. VSS, ON 2L O2 SAT LOW 90'S. CHAMP DRAIN TO RIGHT AND LEFT DRAINING SEROSANGUANOUS FLUIDS. INCISION TO MIDLINE HAS DRESSING IN PLACE, DRAINING TO WOUND VAC. NG IN RIGHT NARE ON LOW INTERMITTANT SUCTION. PT C/O PAIN TO ABDOMEN. PT REFUSES TURNS DUE TO PAIN. FALL PRECATUIONS IN PLACE. WILL CONTINUE WITH PLAN OF CARE.
--- NOTE | 2017-04-18 14:33 | NUR ---
SPOKE TO DR BELTRAN, HE AND DR GARCIA WANT [facility]. CALLED AND SPOKE TO DR SPENCE, HE IS ALSO OK WITH DC THE [facility].
--- NOTE | 2017-04-18 20:00 | NUR ---
PT PROGRESSING TOWARD GOALS.MORE ALERT THIS AFTERNOON. COKER REMOVED THIS AFTERNOON, PT VOIDING, IS INCONT AT TIME. GAVE PT A SUPPOSITORY THIS AFTERNOON, SHE WAS ABLE TO HAVE A MODERATE SIZE BM. PTS SKIN TO STACEY AREA RED, NYSTATIN CREAM ORDERED. PTS ANTIBIOTICS ADJUSTED PER SURGERY. PT RECIEVING PAIN MEDS WITH ONLY SOME RELIEF. PT WAS ASKING TO EAT AFTER HAVING THE BM, PT EDUCATED THAT SURGERY WILL ASSESS IT IN THE AM. PT TEARFUL ABOUT HEALTH AND FAMILY SITUATION. LORAZIPAM GIVEN PER MAY. PT GIVEN BATH TODAY, GIVES MODERATE ASSIST TO TURN SELF IN BED. NG STILL DRAINING FROM RIGHT NARE. FALL PRECATUIONS MAINTAINED. CALL LIGHT IN REACH. REPORT GIVEN TO TERESA BENITO
[2017-04-19 04:05] VITALS: BP 146/91
--- NOTE | 2017-04-19 04:24 | NUR ---
ASSUME DPT CARE AT 1930, PT IS A&OX4, PT C/O PAIN THROUGHTOUT THE SHIFT, PRN PAIN MEDICATIONS GIVEN PER MAY. PT IS TRACING NSR ON THE MONITOR, ON 2L NC SATTING MID TO HIGH 90'S, PT HAS PPN INFUSIGN PER MAY. AT THE START OF SHIFT PT HAD NG TO LIS. THIS RN FOUND PT'S NG TO HAVE BEEN DISLODGED FROM ORIGINAL LOCATION, BUT NOT FULLY OUT. THIS WEIGHER PRODUCTION NG BACK TO ORIGINAL HASH CHANTAL, WHEN THIS RN FLUSHED NG WITH AIR TO HEAR IT IN HER ABD, THIS RN WAS UNABLE TO HEAR IT, BUT FLUSHING THE AIR WOULD MAKE THE PT BELCH. THIS RN CALLED THE TEACHER INSTRUMENTAL SURGEON TO NOTIFY THEM, SURGEON STATED THAT NG MAY NEED TO BE ADVANCED MORE, BUT TO CLAMP IT AT THIS TIME TO SEE HOW THE PT FAIR'S WITHOUT SUCTION. NG IS CLAMPED AT THIS TIME. PT WAS TAKEN DOWN FOR A ABD XRAY 3 VIEW, THIS RN IS AWAITING THOSE RESULTS TO GET EXACT LOCATION OF NG TUBE. PT HAD ONE LARGE HARD BM ON DAY SHIFT. PT STATES SHE FEELS BETTER AFTER THAT. BED IN LOW POSITION, CALL LIGHT IN REACH, BED ALARM ON, YELLOW ARM BAND AND SOCKS IN PLACE. HOURLY ROUNDING COMPLETED FOR PT SAFETY.
[2017-04-19 05:16] LABS: HEMOGLOBIN 11.3 gm/dL (12.0-15.0); MCH 30.5 pg (26.0-34.0); MCHC 34.4 g/dL (28.0-37.0); MCV 88.6 fL (80.0-100.0); MPV 6.5 fl. (7.2-11.1); NUCLEATED RBCS 0 /100WBC; PLATELET COUNT* 289 thou/uL (150-400); RBC 3.72 mil/uL (4.20-5.00); RDW-CV 13.9 % (10.5-14.5); WBC 11.4 thou/uL (4.0-11.0)
[2017-04-19 05:36] LABS: ALBUMIN 2.1 g/dL (3.4-5.0); CALCIUM 8.2 mg/dL (8.5-10.1); CREATININE 0.8 mg/dL (0.6-1.3); TOTAL BILIRUBIN 0.4 mg/dL (<0.1-1.0)
[2017-04-19 06:04] LABS: ABSOLUTE EOSINOPHILS 0.1 thou/uL (0.0-0.7); ABSOLUTE LYMPHOCYTES 1.8 thou/uL (0.8-5.3); ABSOLUTE MONOCYTES 0.2 thou/uL (0.0-1.2); ABSOLUTE NEUTROPHILS 9.2 thou/uL (1.6-8.1); ANISOCYTOSIS 1+; PLATELET ESTIMATE ADEQUATE; POIKILOCYTOSIS 1+
[2017-04-19 08:00] VITALS: BP 133/77
--- NOTE | 2017-04-19 11:30 | NUR ---
ASSUMED RESPONSIBILITY OF PT THIS AM PT IS ALERT AND ORIENTED PT COMPLAINS OF PAIN IN ABDOMEN T/O DAY DIAPHORETIC AND COOL NG TUBE ADVANCED TO 48 THEN HAD PT AND DOWN TO 30 ABOUT TO ADVANCE AGAIN PT COMPLAINS OF SIGNIFICANT PAIN MAINLY IN NOSE WHEN IT IS ADVANCED CHAMP DRAINING MORE ON THE RIGHT THAN LEFT DRESSING MIDLINE NO DRAINAGE NOTED RIGHT SUBCLAVIAN TRIPLE LUMEN WITH PPN FLOWING ASSIST X1 TO CHAIR JUST VERY 'SLEEPY' TODAY CALL LIGHT IN REACH WILL CONT TO MONITOR
[2017-04-19 12:20] VITALS: BP 152/93
--- NOTE | 2017-04-19 13:29 | NUR ---
I have reviewed the documentation by ROXANNE MENJIVAR from 04/19/17 to 04/19/17 and I concur with it. HAILEY TALLEY
[2017-04-19 15:39] VITALS: BP 138/80
--- NOTE | 2017-04-19 18:20 | NUR ---
PT RESTED T/O DAY DID BECOME CONFUSED AT TIMES THINKS SHE IS NOT GETTING ANY NUTRITION DISCUSSED PPN AND 10 MIN LATER ASKED THE SAME THING TALKED WITH SON WELL PT RECEIVED SUPP. WILL CONT TO GET THESE DAILY UNTIL PT CAN HAVE BMS REGULARLY NG TUBE STILL CLAMPED NO NAUSEA OR VOMITING CONT WITH 2L NC MRSA CAME BACK POSITIVE ISOLATION CART
[2017-04-19 20:00] VITALS: BP 124/70
[2017-04-20] VITALS (7 sets, daily range): BP systolic 121–146; BP diastolic 68–80
--- NOTE | 2017-04-20 05:54 | NUR ---
ASSUMED PT CARE AT 1930, PT IS A&OX4, SHE CAN BE FORGETFUL AT TIMES. PT C/O PAIN THROUGHOUT THE SHIFT, PT IS TRACING ST ON THE MONITOR, ON 2L CN SATTING MID TO HIGH 90'S. PT HAS IVF INFUSING PER MAR. PT'S NG REMAINS CLAMPED ALL SHIFT, PT TOOK ICE CHIPS AND SMALL SIPS OF WATER WITHOUT ISSUES, NO COMPLAINTS OF NAUSEA THIS SHIFT. PT HAS ACTIVE BOWEL SOUNDS AND HAD A BOWEL MOVEMENT ON DAY SHIFT. PT HAS [address] AT THIS TIME, WELL A MIDLINE PROVENA WOUND VAC. PT IS STILL INCONTINENT OF URINE. PT IS ON ISOLATION FOR MRSA IN THE NARES. BED IN LOW POSITION, CALL LIGHT IN REACH, BED ALARM ON, YELLOW ARM ABND AND SOCKS IN PLACE. HOURLY ROUNDING COMPLETED FOR PT SAFETY.
[2017-04-20 06:38] LABS: ABSOLUTE BASOPHILS 0.1 thou/uL (0.0-0.2); ABSOLUTE EOSINOPHILS 0.3 thou/uL (0.0-0.7); ABSOLUTE LYMPHOCYTES 1.2 thou/uL (0.8-5.3); ABSOLUTE MONOCYTES 0.7 thou/uL (0.0-1.2); ABSOLUTE NEUTROPHILS 8.8 thou/uL (1.6-8.1); EOSINOPHILS 2.9 %; HEMATOCRIT 33.3 % (37.0-47.0); LYMPHOCYTES 10.7 %; MCH 29.8 pg (26.0-34.0); MCHC 33.2 g/dL (28.0-37.0); MCV 89.9 fL (80.0-100.0); MONOCYTES 6.1 %; MPV 6.7 fl. (7.2-11.1); NUCLEATED RBCS 0 /100WBC; PLATELET COUNT* 331 thou/uL (150-400); POLYS 79.3 %; RDW-CV 13.8 % (10.5-14.5)
[2017-04-20 06:43] LABS: CALCIUM 8.1 mg/dL (8.5-10.1); CREATININE 0.9 mg/dL (0.6-1.3); MAGNESIUM 1.9 mg/dL (1.8-2.4); PHOSPHORUS* 4.1 mg/dL (2.5-4.9); POTASSIUM 3.9 mmol/L (3.5-5.1)
--- NOTE | 2017-04-20 19:06 | NUR ---
ASSUMED CARE OF PT AT 0730. PT A&0X4, FORGETFUL AT TIMES DUE TO PAIN MEDICATIONS. AM ASSESSMENT CHARTED. MEDICATIONS PER MAY. PT COMPLAINED OF PAIN TO ABDOMEN THROUGHOUT SHIFT. TREATED WITH PRN IV MORPHINE ALTERNATED WITH PO HYDROCODONE WITH PARTIAL RELIEF. REFER TO EMAR. PT IN CONTACT ISOLATION FOR MRSA NARES. PT TRACING ST ON THE AMBULANCE OFFICER. ON 2L NC SAT UPPER 90'S. DENIES ANY SHORTNESS OF BREATH. PT INCONT OF BOWEL AND BLADDER. URINALYSIS NEEDS TO BE OBTAINED. MIDLINE PRIVINA WOUND VAC REMOVED TODAY PER GENERAL SURGERY. ABD DRESSING IN PLACE. BILATERAL CHAMP DRAINS IN PLACE. RIGHT CHAMP OUTPUT GREATER THAN THE LEFT. REFER TO CHARTING. PERIPHERAL IV PLACED TO RIGHT HAND 22G AT APPROXIMATELY 1850. PROCALAMINE CURRENTLY INFUSING TO RIGHT HAND AT 75 ML/HR. NG TUBE REMOVED TODAY. PT TOLERATING WELL. PT ON CLEAR LIQUIDS. TOLERATING FAIR WITH MINIMAL NAUSEA AND MODERATE PAIN. PT UP WITH 2 ASSIST. PT WORKED WITH PHYSICAL THERAPY TODAY. UP TO CHAIR MULTIPLE TIMES TODAY. PT REQUIRES ENCOURAGEMENT TO INCREASE ACTIVITY AND STAY OUT OF BED. FAMILY AT BEDSIDE THROUGHOUT SHIFT. PT SLOWLY PROGRESSING TOWARDS GOALS. PT REPOSITIONED EVERY 2 HOURS FOR COMFORT. HOURLY ROUNDING OBSERVED. BED IN LOW POSITION. BED ALARM IN PLACE. FALL PRECAUTIONS IN PLACE. CALL LIGHT WITHIN REACH. WILL CONTINUE PLAN OF CARE.
[2017-04-21 04:08] VITALS: BP 142/80
--- NOTE | 2017-04-21 07:20 | NUR ---
CHNAGE OF SHIFT, BEDSIDE REPORT GIVEN ASSUMED PATIENT CARE PATIENT SEEN AT BEDSIDE, ASLEEP
--- NOTE | 2017-04-21 07:47 | NUR ---
Pt c/o incisional abdominal pain. Medicated with hydrocodone and morphine per orders. Rating pain 8-9/10 before pain meds, then down to 6-7/10 afterwards. States she has not been able to sleep very well. Incontinent of urine. VSS. Will continue to monitor.
[2017-04-21 08:00] VITALS: BP 137/82
[2017-04-21 12:04] VITALS: BP 122/63
[2017-04-21 15:31] VITALS: BP 117/66
[2017-04-21 20:38] VITALS: BP 134/73
[2017-04-22] VITALS (7 sets, daily range): BP systolic 103–150; BP diastolic 58–82
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
[2017-04-22 05:34] LABS: HEMATOCRIT 31.9 % (37.0-47.0); HEMOGLOBIN 10.7 gm/dL (12.0-15.0); MCHC 33.5 g/dL (28.0-37.0); MCV 92.5 fL (80.0-100.0); MPV 7.2 fl. (7.2-11.1); RBC 3.45 mil/uL (4.20-5.00); RDW-CV 13.8 % (10.5-14.5); WBC 8.4 thou/uL (4.0-11.0)
[2017-04-22 05:46] LABS: CALCIUM 8.5 mg/dL (8.5-10.1); CREATININE 0.8 mg/dL (0.6-1.3); MAGNESIUM 1.9 mg/dL (1.8-2.4); POTASSIUM 3.7 mmol/L (3.5-5.1); TOTAL BILIRUBIN 0.2 mg/dL (<0.1-1.0); TOTAL PROTEIN 5.1 g/dL (6.4-8.2)
--- NOTE | 2017-04-22 14:44 | NUR ---
PATIENT TRANSFERRED TO ROOM 305 VIA BED AT THIS TIME. PATIENT A/O X 4. STATES HAVING ABDOMINAL PAIN DESPITE HAVING PAIN PILLS PRIOR TO TRANSFERRING. DRESSING TO ABDOMEN CLEAN, DRY AND INTACT. CHAMP DRAINS REMOVED PRIOR TO TRANSFERRING UP. SALINE LOCK NOTED TO RIGHT HAND. PATIENT ORIENTED TO ROOM AND ENVIRONMENT. CALL LIGHT WITHIN REACH. WILL CONTINUE WITH PLAN OF CARE.
--- NOTE | 2017-04-22 17:21 | NUR ---
PATIENT HAS BEEN A/O X 4 SINCE TRANSFERRING TO [facility]. PATIENT UP TO [facility] WITH ASSIST OF 1. ENCOURAGED PATIENT TO BE UP IN CHAIR FOR MEALS. SALINE LOCK PATENT. PATIENT INCONTINENT OF URINE X 1 THIS SHIFT. STACEY-CARE PROVIDED. PATIENT MEDICATED FOR PAIN X 1 THIS AFTERNOON. MIDLINE INCISION INTACT, QUINTON WELL APPROXIMATED. CHAMP DRAINS PULLED THIS SHIFT BY SURGERY. REMAINS IN CONTACT ISOLATION. HOURLY ROUNDING COMPLETED. CALL LIGHT WITHIN REACH. WILL CONTINUE WITH PLAN OF CARE.
[2017-04-23] VITALS: BP 112/65
--- NOTE | 2017-04-23 06:54 | NUR ---
PT SLEPT ON AND OFF OVERNIGHT. RECEIVING PO AND IV PAIN MED FOR CO ABD PAIN. NAUSEA MED GIVEN AT HS WITH GOOD RELIEF. TOLERATING CRACKERS AND LIQUIDS, NO EMESIS. ABD TALIA CDI, SURGERY HERE TO CHANGE DRESSING THIS MORNING. REMAINS ON CONTACT ISOLATION FOR MRSA NARES. RAC SLIV STARTED THIS MORNING AFTER PT DISCONTINUED OTHER ONE. INCONTINENT URINE OVERNIGHT, NO BM. PT TURNED AND REPOSITIONED Q2 HOURS AND PRN FOR SKIN CARE AND COMFORT, STACEY AREA RED, STACEY CARE GIVEN AND BARRIER CREAM APPLIED. TALIA CDI TO R CHEST OLD PAC SITE. PLACED ON O2 2L AFTER RECEIVING MORPHINE FOR PAIN SAT 88%. ABLE TO USE CALL LITE AND MAKE NEEDS KNOWN.
[2017-04-23 07:55] VITALS: BP 124/66
[2017-04-23 15:15] VITALS: BP 123/65
--- NOTE | 2017-04-23 15:54 | NUR ---
ESTRELLA followed up with Latesha at [facility] who responded that pt was not clinically approved at time of initial referral and that they did not have any beds available but they might by Wednesday. ESTRELLA sent referrals to [facility] and [facility] and both SNFs accepted pt. SW tried to call pt and the phone number was not a working number. Preference was for [facility] second choice as noted in previous notes. ESTRELLA spoke with Ceci at [facility] who said she would accept pt and bed available for Wednesday and to call [phone] and Ceci could arrange for transportation and receive final dc orders/med list when pt is ready to dc.
--- NOTE | 2017-04-23 18:48 | NUR ---
PATIENT HAS BEEN A/O X 4 THIS SHIFT. UP TO CHAIR X 2 TODAY. MEDICATED FOR PAIN WITH PARTIAL RELIEF. PATIENT DID HAVE NAUSEA THIS SHIFT, MEDICATED WITH RELIEF NOTED. PATIENT DID HAVE LARGE BM THIS SHIFT. MIDLINE INCISION INTACT WITH QUINTON IN PLACE. REMAINS IN CONTACT ISOLATION. HOURLY ROUNDING COMPLETED. CALL LIGHT WITHIN REACH. WILL CONTINUE WITH PLAN OF CARE.
[2017-04-23 19:36] VITALS: BP 119/75
--- NOTE | 2017-04-24 05:29 | NUR ---
ASSESSMENT COMPLETE. PT SLEPT MOST OF THE NIGHT WITHOUT ANY CONCERNS. PT GIVEN PRN PAIN MEDS NEEDED DURING THE NIGHT. PT DENIES N/V. PT IS ON ROOM AIR WITH [place] SATS. INCISION DRESSING C/D/I. PT INCONT DURING THE NIGHT. PT HAS IV IN RIGHT AC, SALINE LOCKED. PT IS Q2 TURN FOR SKIN INTEGRITY. PT IS FALL RISK, BED ALARM ON. SEE ASSESSMENT AND VITALS FOR OTHER DETAILS. CALL LIGHT WITHIN REACH, WILL CONTINUE TO MONITOR
[2017-04-24 08:00] VITALS: BP 94/55
--- NOTE | 2017-04-24 10:55 | NUR ---
SPOKE WITH PT'S SPOUSE TO DISCUSS DC PLAN AND SNF. HE IS AGREEABLE FOR HER TO GO TO [facility] [place]. HE HAS BEEN THERE BEFORE AND IS FAMILIAR WITH IT. DID MAKE HIM AWARE THAT [facility] WAS FULL AND COULDN'T ACCEPT PT. WILL FOLLOW
[2017-04-24] MEDS ORDERED: OXYCODONE HCL 55 MG PO (11:58)
[2017-04-24] MEDS ORDERED: HYDROCODONE-AP1 EAC6 PO (11:59)
[2017-04-24] MEDS ORDERED: BISCOLAX10 MG RECTAL (12:00)
[2017-04-24] MEDS ORDERED: CARDIZEM CD240 MG PO (12:01)
[2017-04-24] MEDS ORDERED: DUONEB 2.5-0.5 M3 ML INH (12:03)
[2017-04-24] MEDS ORDERED: DOCUSATE S100 MG/10 PO (12:03)
[2017-04-24] MEDS ORDERED: MIRALAX17 GM PO (12:04)
[2017-04-24] MEDS ORDERED: NYSTATIN15 G1 TOP (12:06)
[2017-04-24] MEDS ORDERED: PRILOSEC 20 MG20 MG PO (12:06)
[2017-04-24] MEDS ORDERED: SENOKOT-S1 TA2 PO (12:07)
[2017-04-24 12:12] VITALS: BP 150/80
[2017-04-24 12:24] VITALS: BP 150/80
[2017-04-24 13:10] VITALS: BP 150/80
[2017-04-24 13:27] VITALS: BP 94/55
--- NOTE | 2017-04-24 13:39 | NUR ---
PATIENT IS ALERT AND ORIENTED, SOMEWHAT OF A FLAT AFFTECT. VITAL SIGNS STABLE ON ROOM AIR. QUINTON REMOVED TODAY BY SURGERY AND STERI STRIPS PLACED. INCISION IS CLEAN DRY AND INTACT. SOME COMPLAINTS OF PAIN TODAY THAT IS CONTROLLED WITH ORAL PAIN MEDICATIONS. PATIENT IS BEING DISCHARGED TO A [facility]LTER FACILITY, REPORT CALLED INTO [facility], TRANSPORTATION WILL BE HERE AROUND 1400 FOR PATIENT. DISCHARGE PAPERS, CHART AND PRESCRIPTIONS IN ENVELOPE TO GO TO THE FACILITY.
[2017-04-24 15:00] VITALS: BP 94/55
--- NOTE | 2017-04-26 09:12 | CON ---
[facility] [address] [place] [address] CONSULTATION Name: MAXIME JESSICA Room: [address] IN M.R.#: [id number] Admission: 04/12/17 Attend Phys: Shaheen Galicia MD Discharge: 04/24/17 Date of : 42 Report #: [id number] THIS REPORT FOR: //name// CC: Shaheen Abel DATE OF SERVICE: 04/13/2017 REQUESTING PHYSICIAN: Shaheen Galicia M.D. REASON FOR CONSULTATION: Acute kidney injury. HISTORY OF PRESENT ILLNESS: The patient is a 76-year-old female with medical history significant for vulvar cancer, treated at [facility]. She was diagnosed 3 years ago and apparently is in remission. She had radiation down to that. She also had history of ovaries [place] [address] Amezcua. She presents to the hospital on 04/12/2017 with complaints of severe abdominal pain and constipation. The symptoms started several days prior to the admission. She was diagnosed with small bowel obstruction and was taken to the operating room by Dr. Kelly on 04/13/2017. She was found to have small bowel obstruction due to adhesions causing bowel ischemia, so lysis of adhesions was performed. No resection was performed. Some drains were placed in peritoneal cavity. Her creatinine that was normal yesterday went up to 2.1. Her urine output dropped. Her carbon dioxide dropped to 10 and I was consulted. PAST MEDICAL AND SURGICAL HISTORY: Significant for vulvar cancer as I mentioned earlier. She also has a history of GERD and hysterectomy and oophorectomy. She does have history of hypertension as well. MEDICATIONS: Prior to admission include omeprazole, Celexa, Topamax, and Soma. REVIEW OF SYSTEMS: She is very sleepy now after the surgery. She just had the surgery this morning and does not have any full conversation. FAMILY HISTORY: Noncontributory. SOCIAL HISTORY: No tobacco and no alcohol abuse. PHYSICAL EXAMINATION: GENERAL: She is in intensive care unit. VITAL SIGNS: Her blood pressure is 118/78, heart rate 125-130, temperature 37.2. HEENT: Pupils are round. NECK: Supple. LUNGS: Clear. CARDIOVASCULAR: [place] [address] CONSULTATION Name: MAXIME JESSICA Room: [address]#: [id number] Admission: 04/12/17 Attend Phys: Shaheen Galicia MD Discharge: 04/24/17 Date of : 42 Report #: [id number] ABDOMEN: Tender on palpation. Several drains in place. EXTREMITIES: Lower extremities, trace edema. LABORATORY DATA: [place] [address], hemoglobin 20.5, hematocrit 64.8. Her hemoglobin was 16.4 on admission and platelet count 541. Serum sodium 144, potassium 4.2, chloride 107, carbon dioxide 10, BUN 34, creatinine 2.1. ASSESSMENT: A 76-year-old female admitted with small bowel obstruction due to adhesions and bowel ischemia that was released today. She has acute kidney injury due to the above-mentioned problems. She received 4 L of fluids over the last several hours, now receiving NS at 150. PLAN: At this point, we will repeat her labs, continue her antibiotics, and watch her intakes and outputs. There is no immediate need for dialysis; however, if acidosis gets worse or she becomes anuric we may have to start her on dialysis. I discussed this case with Dr. Galicia and with the patient's family. The patient is critically ill. Thirty minutes were spent for her care. Thank you very much for asking my opinion on this patient's acute kidney injury. <ELECTRONICALLY SIGNED> By: Chang Davis MD 04/26/17 0912 [id number] Davis MD /PMT
--- NOTE | 2017-04-26 15:56 | CON ---
[address] [address] CONSULTATION Name: MAXIME JESSICA Room: [address] IN .R.#: [id number] Admission: 04/12/17 Attend Phys: Shaheen Galicia MD Discharge: 04/24/17 Date of : 42 Report #: [id number] THIS REPORT FOR: //name// CC: Shaheen Galicia MD [facility] DATE OF SERVICE: 04/14/2017 REFERRING PHYSICIAN: Shaheen Galicia MD REASON FOR CONSULTATION: High hemoglobin. HISTORY OF PRESENT ILLNESS: The patient is a pleasant 76-year-old female who was admitted in the hospital a few days ago for abdominal pain and constipation for several days. The patient after admission was also found to have high hemoglobin and hematocrit. The patient's labs on admission revealed hemoglobin of 16.4, which increased to 20.5 on 04/13/2017. The patient's hemoglobin today was 13.9. Her hematocrit elevated to 64.8% also on 04/13/2017 and it is down to 42.2. The patient's WBC count was also elevated at 19.9 and decreased to 15.5. Absolute neutrophil count was 16.2 and decreased to 12.3 over the last 2 days. The patient's platelet count has been within the normal limit, but did elevate to 541 two days ago and is 267 today. The patient was found to have small-bowel obstruction due to adhesions in the lower abdomen and pelvis on the right side causing bowel ischemia and underwent surgery yesterday for correction of the bowel obstruction. Hematology were consulted for further evaluation of her erythrocytosis. The patient still complains of abdominal pain as she is postop. The patient does not complain of any headaches, dizziness, nausea, vomiting, constipation, diarrhea, chest pain, palpitations, or other significant symptoms at this time. PAST MEDICAL HISTORY: 1. Hypertension. 2. Chronic sinusitis. 3. Migraines. 4. Severe arthritis. 5. Small-bowel obstruction. 6. Right knee pain. 7. History of falls. 8. History of concussion causing skull fracture. 9. History of brain bleed, which has required surgery in the past. PAST SURGICAL HISTORY: 1. Tonsillectomy as a child. 2. Appendectomy [place] 8 [place] [address] CONSULTATION Name: MAXIME JESSICA Room: [address]#: [id number] Admission: 04/12/17 Attend Phys: Shaheen Galicia MD Discharge: 04/24/17 Date of : 42 Report #: [id number] 3. Tuboplasty at 35 years of age. 4. Hysterectomy and bilateral oophorectomy 10 years ago. 5. Laparotomy yesterday. PERSONAL HISTORY: The patient is a never smoker and uses alcohol only on special occasions. FAMILY HISTORY: The patient does have a strong family history of multiple types of cancers including pancreatic cancers and ovarian cancers. No history of breast cancer or kidney cancer in her family. No history of other malignancies in particular. The patient does give a family history of bleeding tendencies, but has been tested for von Willebrand disease in the past, which has been negative. ALLERGIES: PENICILLINS. CURRENT MEDICATIONS: 1. Diltiazem 125 mg IV as directed. 2. Dextrose ____ IV q. 10 hours as directed. 3. Solu-Medrol 62.5 mg IV push daily. 4. Protonix 40 mg p.o. daily. 5. Ciprofloxacin 100 mL IV b.i.d. 6. Vancomycin 500 mg IV q 12 hours. 7. Morphine 2 mg IV q. 4 hours as needed. 8. Sodium chloride 1000 mL IV as directed. 9. Acetaminophen 650 mg q. 4 hours as needed intrarectally. 10. DuoNeb inhalation every 4 hours as needed. 11. Metronidazole 500 mg q. 6 hours. 12. Promethazine 12.5 mg IV q. 6 hours as needed. 13. MiraLax 17 grams ____ daily. 14. Zofran 4 mg IV q. 4 hours as needed. 15. Hydralazine 10 mg IV q. 6 hours as needed. 16. Fentanyl patch 50 mcg ____ q. 2 hours as needed. 17. Docusate 100 mg p.o. daily. 18. Tylenol 650 mg p.o. q. 6 hours as needed. REVIEW OF SYSTEMS: A 13-point review of systems were obtained, which were negative for any findings except those discussed in the HPI. PHYSICAL EXAMINATION: VITAL SIGNS: T-max was 38.2, pulse was 109 beats per minute, respiratory rate was 18 breaths per minute, blood pressure 155/78 mmHg with pulse ox of 96% on supplemental oxygen. GENERAL: Awake, alert and verbal. Appears mildly uncomfortable. HEENT: Nasal cannula and NG tube in place. Anicteric/atraumatic. LYMPHATICS: No lymphadenopathy in the neck or supraclavicular areas. [address] [address] CONSULTATION Name: MAXIME JESSICA Room: [address]#: [id number] Admission: 04/12/17 Attend Phys: Shaheen Galicia MD Discharge: 04/24/17 Date of : 42 Report #: [id number] CHEST: Clear bilaterally. CARDIOVASCULAR: Regular rate and rhythm. ABDOMEN: Postop, bowel sounds positive. MUSCULOSKELETAL: No significant arthropathy apparent. NEUROLOGIC: No evidence of any focal neurological deficit. INTEGUMENTARY: No evidence of rash or other skin changes. LABORATORY REVIEW: The patient's complete metabolic profile was essentially unremarkable except mildly elevated sodium of 148 and BUN and creatinine of 37 and 1.4 respectively. Creatinine has decreased from 2.1 since yesterday. Lactic acid was normal at 1.6. Ferritin level was normal at 51 and total bilirubin was 0.2. The patient's total protein level was decreased at 5.1 and albumin was also decreased to 1.9. ASSESSMENT AND PLAN: The patient is a pleasant 76-year-old female who was seen today for evidence of polycythemia. I discussed the finding of polycythemia with the patient. I had a detailed discussion with her regarding the possible causes of polycythemia, most of which are secondary causes including sleep apnea and smoking for example. The patient does not have any history of sleep apnea and is a never smoker. The patient did have a CT scan of the abdomen and pelvis 2 days ago, which did not mention any abnormality in the liver or in the kidneys except above defined low density mass in the superior right kidney measuring 1.5 cm consistent with a cyst along with a left kidney mass measuring 1.2 cm also consistent with a cyst. Liver also had some cystic lesions as well. I will plan to start an initial evaluation for her polycythemia with JAK2 mutation status and erythropoietin level and reticulocyte count today. The patient's hemoglobin and hematocrit are normal today, but are likely as a result of hemodilution due to IV fluids. I will plan to see the patient back in the clinic at [facility] in 2-3 weeks from now, which can be arranged at the time of discharge. Plan was discussed with the patient in detail and all of her questions were answered to her satisfaction. Thank you for allowing me to participate in care of this pleasant patient. <ELECTRONICALLY SIGNED> By: Alvarez Stein MD 04/26/17 1556 1407 [id number] Stein MD /nt
== END 2017-04-24 14:40 | DRG 853 ==
LOC: M.ERS 13:11 → M.TBA-ER 17:35 → M.ICU 17:35 → M.ORTHSURG 21:32 → M.ICU 04-13 04:04 → M.2W 04-16 16:17 → M.3W 04-22 14:31
PROVIDERS: Internal Medicine; Internal Medicine Nephrology; Physician Assistant; Surgery; ADMIT Internal Medicine
PROC: 0DN80ZZ Release Small Intestine, Open Approach (ICD-10-PCS; principal; 2017-04-13)
PROC: 02HV33Z Insertion of Infusion Device into Superior Vena Cava, Percutaneous Approach (ICD-10-PCS; 2017-04-13)
PROC: 0D9670Z Drainage of Stomach with Drainage Device, Via Natural or Artificial Opening (ICD-10-PCS; 2017-04-13)
DX: A41.9 Sepsis, unspecified organism (principal); J69.0 Pneumonitis due to inhalation of food and vomit; N17.0 Acute kidney failure with tubular necrosis; J96.01 Acute respiratory failure with hypoxia; R18.8 Other ascites; K56.50 Intestinal adhesions [bands], unspecified as to partial versus complete obstruction; K55.9 Vascular disorder of intestine, unspecified; I47.1 Supraventricular tachycardia; K56.7 Ileus, unspecified; E44.0 Moderate protein-calorie malnutrition; E86.0 Dehydration; I10 Essential (primary) hypertension; K21.9 Gastro-esophageal reflux disease without esophagitis; F32.9 Major depressive disorder, single episode, unspecified; J45.909 Unspecified asthma, uncomplicated; D75.1 Secondary polycythemia; K46.9 Unspecified abdominal hernia without obstruction or gangrene; G43.909 Migraine, unspecified, not intractable, without status migrainosus; Z90.710 Acquired absence of both cervix and uterus; Z88.0 Allergy status to penicillin; Z90.721 Acquired absence of ovaries, unilateral; Z87.81 Personal history of (healed) traumatic fracture; Z90.49 Acquired absence of other specified parts of digestive tract; Z85.89 Personal history of malignant neoplasm of other organs and systems; Z87.11 Personal history of peptic ulcer disease; Z68.28 Body mass index [BMI] 28.0-28.9, adult

== ENCOUNTER 2017-05-12 20:03 | Emergency (ER) | payer MEDICARE ==
[~2017-05-12] VITALS: Ht 167.6 cm; Wt 72.6 kg
[~2017-05-12 20:03] MED LIST changes: +BISCOLAX10 MG RECTAL; +CARDIZEM CD240 MG PO; +DOCUSATE S100 MG/10 PO; +DUONEB 2.5-0.5 M3 ML INH; +HYDROCODONE-AP1 EAC6 PO; +MIRALAX17 GM PO; +NYSTATIN15 G1 TOP; +OXYCODONE HCL 55 MG PO; +SENOKOT-S1 TA2 PO; +TOPAMAX 100 MG100 MG PO
[2017-05-12 21:14] LABS: HEMOGLOBIN 11.3 gm/dL (12.0-15.0); MCHC 32.4 g/dL (28.0-37.0); MCV 92.6 fL (80.0-100.0); MPV 6.5 fl. (7.2-11.1); NUCLEATED RBCS 0 /100WBC; PLATELET COUNT* 374 thou/uL (150-400); RBC 3.78 mil/uL (4.20-5.00); RDW-CV 14.1 % (10.5-14.5); WBC 6.1 thou/uL (4.0-11.0)
[2017-05-12 21:22] LABS: CALCIUM 8.7 mg/dL (8.5-10.1); CREATININE 1.1 mg/dL (0.6-1.3)
[2017-05-12 21:32] LABS: ALBUMIN 3.2 g/dL (3.4-5.0); TOTAL BILIRUBIN 0.1 mg/dL (<0.1-1.0)
[2017-05-12 22:12] LABS: ABSOLUTE EOSINOPHILS 0.7 thou/uL (0.0-0.7); ABSOLUTE LYMPHOCYTES 1.8 thou/uL (0.8-5.3); ABSOLUTE MONOCYTES 0.5 thou/uL (0.0-1.2); ABSOLUTE NEUTROPHILS 3.1 thou/uL (1.6-8.1); PLATELET ESTIMATE ADEQUATE
[2017-05-12 22:13] LABS: LARGE PLATELETS OCCASIONAL
[2017-05-12 23:28] VITALS: BP 134/65
== END 2017-05-12 23:29 | disposition home or self-care (01) ==
LOC: M.ERS 20:03
PROVIDERS: Physician Assistant
DX: K59.00 Constipation, unspecified (principal); Z88.0 Allergy status to penicillin

== ENCOUNTER 2017-06-10 17:10 | Inpatient (IN) | payer MEDICARE ==
[~2017-06-10] VITALS: Ht 167.6 cm; Wt 74.1 kg
[2017-06-10 17:18] VITALS: BP 148/82
[2017-06-10] MEDS ORDERED: FIORINAL WITH1 EACH PO (17:27)
[2017-06-10] MEDS ORDERED: TOPAMAX100 MG PO (17:28)
[2017-06-10] MEDS ORDERED: LASIX 20 MG TAB20 MG PO (17:29)
[2017-06-10 17:56] LABS: ABSOLUTE EOSINOPHILS 0.2 thou/uL (0.0-0.7); ABSOLUTE LYMPHOCYTES 1.7 thou/uL (0.8-5.3); ABSOLUTE MONOCYTES 0.5 thou/uL (0.0-1.2); ABSOLUTE NEUTROPHILS 3.2 thou/uL (1.6-8.1); BASOPHILS 0.6 %; EOSINOPHILS 2.7 %; HEMATOCRIT 32.1 % (37.0-47.0); HEMOGLOBIN 10.9 gm/dL (12.0-15.0); LYMPHOCYTES 30.4 %; MCH 30.2 pg (26.0-34.0); MCHC 33.9 g/dL (28.0-37.0); MCV 89.2 fL (80.0-100.0); MONOCYTES 8.5 %; MPV 6.6 fl. (7.2-11.1); NUCLEATED RBCS 0 /100WBC; PLATELET COUNT* 292 thou/uL (150-400); POLYS 57.8 %; RDW-CV 13.8 % (10.5-14.5); WBC 5.6 thou/uL (4.0-11.0)
[2017-06-10 18:03] LABS: ANION GAP 14 mmol/L (7-16); BUN 16 mg/dL (7-18); CALCIUM 8.4 mg/dL (8.5-10.1); CHLORIDE 111 mmol/L (98-107); CO2 21 mmol/L (21-32); CREATININE 0.9 mg/dL (0.6-1.3); GLUCOSE 100 mg/dL (70-99); SODIUM 146 mmol/L (136-145)
[2017-06-10 18:14] LABS: ALBUMIN 3.4 g/dL (3.4-5.0); ALKALINE PHOSPHATASE 143 U/L (46-116); NT-PRO BRAIN NAT PEPTIDE 450 pg/mL (<300); SGOT 27 U/L (15-37); SGPT 37 U/L (30-65); TOTAL BILIRUBIN 0.1 mg/dL (<0.1-1.0); TOTAL PROTEIN 6.7 g/dL (6.4-8.2); TROPONIN-I LEVEL <0.06 ng/mL (<0.06)
[2017-06-10 18:15] LABS: POTASSIUM 2.9 mmol/L (3.5-5.1)
--- NOTE | 2017-06-10 18:47 | NUR ---
SUPPER TRAY PROVIDED
[2017-06-10 20:27] VITALS: BP 138/65
[2017-06-10 21:00] VITALS: BP 145/75
[2017-06-10 22:10] LABS: URINE BILIRUBIN NEGATIVE (Negative); URINE BLOOD TRACE (Negative); URINE CLARITY CLEAR; URINE COLOR YELLOW; URINE GLUCOSE-RANDOM NEGATIVE (Negative); URINE KETONES NEGATIVE (Negative); URINE LEUKOCYTES-REFLEX TRACE (Negative); URINE NITRITE-REFLEX NEGATIVE (Negative); URINE PROTEIN NEGATIVE (Negative); URINE SPECIFIC GRAVITY 1.025 (1.005-1.030); URINE UROBILINOGEN 0.2 E.U./dl (0.2-1.0)
[2017-06-10 22:16] LABS: SQUAMOUS 4-10 Moderate /LPF (0-3); TRANSITIONAL EPITHEL CELL 0-3 Few /LPF (None Seen); WBC CLUMPS Few (None Seen)
[2017-06-10 22:17] LABS: BACTERIA-REFLEX >30 Many /HPF (None Seen); CRYSTALS None Seen /LPF (None Seen); FINE GRANULAR CASTS 0-3 Few /LPF (None Seen); HYALINE CASTS 0-3 Few /LPF (None Seen); MUCUS 4-6 Moderate strn/LPF (None Seen); URINE RBC 3-10 Few /HPF (0-2); URINE WBC-REFLEX >25 Many /HPF (0-5)
[2017-06-11] VITALS: BP 140/72
[2017-06-11 04:00] VITALS: BP 133/68
[2017-06-11 05:32] LABS: ABSOLUTE EOSINOPHILS 0.3 thou/uL (0.0-0.7); ABSOLUTE LYMPHOCYTES 1.8 thou/uL (0.8-5.3); ABSOLUTE MONOCYTES 0.4 thou/uL (0.0-1.2); ABSOLUTE NEUTROPHILS 2.2 thou/uL (1.6-8.1); BASOPHILS 0.4 %; EOSINOPHILS 6.1 %; HEMATOCRIT 31.5 % (37.0-47.0); HEMOGLOBIN 10.6 gm/dL (12.0-15.0); LYMPHOCYTES 38.1 %; MCH 29.8 pg (26.0-34.0); MCHC 33.5 g/dL (28.0-37.0); MCV 88.9 fL (80.0-100.0); MONOCYTES 9.3 %; MPV 6.6 fl. (7.2-11.1); NUCLEATED RBCS 0 /100WBC; PLATELET COUNT* 273 thou/uL (150-400); POLYS 46.1 %; RBC 3.54 mil/uL (4.20-5.00); RDW-CV 13.7 % (10.5-14.5); WBC 4.7 thou/uL (4.0-11.0)
[2017-06-11 06:10] LABS: CALCIUM 8.2 mg/dL (8.5-10.1); CREATININE 0.8 mg/dL (0.6-1.3); POTASSIUM 3.1 mmol/L (3.5-5.1)
[2017-06-11 08:00] VITALS: BP 130/73
--- NOTE | 2017-06-11 08:31 | NUR ---
Pt arrived on unit from ED at 2044 on 06/10. Pt alert & oriented, forgetful at times. VSS. C/O headache/migraine. Has home medication, fiornal, ordered; however this medication is not available. Called physician and received order for hydrocodone/APAP as alternative. Pt reports some relief with this medication, but headache returned this morning. Rates pain 8-9/10. Pt expressed some displeasure at for mentioning to ED staff that she has been experiencing altered mentation. States she has been having loose stools for several days; and is puzzled that when she finally comes to the ED for evaluation, she is no longer having loose stools. Will continue to monitor.
--- NOTE | 2017-06-11 10:43 | NUR ---
RECEIEVED REPORT FROM ROBERT AND ASSUMED CARE OF PT AT 0730. PT A/O X4 WITH MILD CONFUSION AT TIMES. VSS, TRACING SR ON MONITOR, LUNG SOUNDS CLEAR. IV IN LEFT WRIST SALINE LOCKED.PT IS CALM AND COOPERATIVE. C/O MIGRAINE HEADACHE AND NECK PAIN, MEDICATIONS WERE GIVEN AND ROOM MADE DARK AND QUIET. PT [place] [facility] AND HAS EPISODES OF INCONTINENCE.PT WAS LEFT IN BED WAITING FOR BREAKFAST WITH CALL LIGHT AND FALL PRECAUTIONS IN PLACE.
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
--- NOTE | 2017-06-11 15:57 | NUR ---
REPORT GIVEN TO HOMA. PT AND ALL BELONGINGS WERE WHEELED DOWN BY WHEELCHAIR VIA NURSE @ 1500. HEART MONITOR REMOVED.
--- NOTE | 2017-06-11 18:07 | EKG ---
[place] [address] ELECTROCARDIOGRAM REPORT Name: MAXIME JESSICA Room: [address] ADM IN .R.#: [id number] Admission: 06/10/17 Attend Phys: Shaheen Galicia MD Discharge: Date of : 42 Report #: [id number] THIS REPORT FOR: //name// [facility] ED Test Date: 2017-06-10 Test Time: 17:29:08 Pat Name: MAXIME JESSICA Department: Room: [facility] Gender: F Pump Service Supervisor: Albert BROWN : 1940 Requested By: Mike Zuniga Order Number: [id number] MD: Andrea Desir Measurements Intervals [place] Rate: 75 P: 42 TN: 153 QRS: 31 QRSD: 97 T: 41 QT: 380 QTc: 425 Interpretive Statements Sinus rhythm RSR' in V1 or V2, right VCD or RVH Compared to ECG 04/14/2017 12:17:29 Right ventricular hypertrophy now present RSR' in V1 or V2 now present Supraventricular tachycardia no longer present Early repolarization no longer present Electronically Signed On 06-11-2017 18:07:44 CDT by Andrea Desir [email or web address] <ELECTRONICALLY SIGNED> By: Andrea Desir MD, FACC 06/11/17 1807 1729 1729 Andrea Desir MD, FAC /EPI
--- NOTE | 2017-06-11 18:38 | NUR ---
ASSUMED CARE OF PATIENT AT 1500. PATIENT WENT FOR MRI OF HEAD SHORTLY AFTER ARRIVING TO UNIT, WITHOUT INCIDENT. PATIENT DID HAVE COMPLAINTS OF HEADA TOPHER UPON RETURN FROM MRI, HYDROCODONE GIVEN WITH ADEQUATE RESULTS. PATIENT REPOSITIONS SELF IN BED. PATIENT HAS GOOD APPETITE. PATIENT DENIES ANY FURTHER NEEDS AT THIS TIME. CALL LIGHT WITHIN REACH. WILL CONTINUE TO MONITOR.
--- NOTE | 2017-06-11 19:25 | NUR ---
THIS RN AGREES WITH THE CHARTING AND ASSESSMENT COMPLETED BY TERESA MORGAN ON 06/11/17.
[2017-06-11 20:10] VITALS: BP 148/72
--- NOTE | 2017-06-12 06:09 | NUR ---
PT SLEPT AT INTERVALS, IV FLUIDS INFUSED, UP WITH ASSIST OF 2 TO THE BSC, PT WEAK, STATED "I'M SCARED I'LL FALL." PT ALSO INCONTINENT OF URINE. CALL LIGHT IN REACH, BED ALARM ON FOR SAFETY, PAIN MEDS PER REQUEST, WILL CONTINUE TO MONITOR
[2017-06-12 08:00] VITALS: BP 119/48
[2017-06-12 16:19] VITALS: BP 142/78
--- NOTE | 2017-06-12 19:29 | NUR ---
PATIENT RESTING IN BED. PATIENT IS UP WITH ASSIST TO COMMODE. PATIENT HAS HAD COMPLAINTS OF MIGRAINE HEADACHE THROUGHOUT DAY, PATIENT GIVEN HYDROCODONE AND NAPROXEN WITH LITTLE RELIEF. XANAX AND TORADOL GIVEN THIS EVENING WITH ADEQUATE RELIEF PROVIDED. PATIENT HAS GOOD APPETITE. PATIENT IS ALERT AND ORIENTED BUT IS FORGETFUL. BED ALARM ON. CALL LIGHT WITHIN REACH. WILL CONTINUE TO MONITOR.
[2017-06-12 20:00] VITALS: BP 143/72
--- NOTE | 2017-06-13 05:22 | NUR ---
PT SLEPT AT INTERVALS DURING THE NIGHT, UP WITH ASSIST AND WALKER TO THE BSC, IV FLUIDS INFUSED, PRN AND SCHEDULED PAIN MEDS FOR HEADACHES, ALSO INCONTINENT OF URINE IN BED, CALL LIGHT IN REACH, BED ALARM ON FOR SAFETY, WILL CONTINUE TO MONITOR
[2017-06-13 07:43] LABS: HEMATOCRIT 34.1 % (37.0-47.0); HEMOGLOBIN 11.3 gm/dL (12.0-15.0); MCH 29.7 pg (26.0-34.0); MCHC 33.1 g/dL (28.0-37.0); MCV 89.6 fL (80.0-100.0); RBC 3.81 mil/uL (4.20-5.00); WBC 4.8 thou/uL (4.0-11.0)
[2017-06-13 07:56] LABS: CALCIUM 8.8 mg/dL (8.5-10.1); MAGNESIUM 1.9 mg/dL (1.8-2.4); POTASSIUM 3.9 mmol/L (3.5-5.1)
[2017-06-13 08:30] VITALS: BP 129/62
--- NOTE | 2017-06-13 18:46 | NUR ---
I ASSUMED CARE OF THE PATIENT AT 0700. SHE IS ALERT AND ORIENTED X4. BED IS IN THE LOW LOCKED POSITION AND CALL LIGHT IS IN REACH. HOURLY ROUNDING IS COMPLETED AND PATIENT NEEDS ARE MET. PAIN IS MANAGED WITH PRN MEDS. SHE IS UP TIMES 1 TO THE BEDSIDE COMMODE. WAS AT THE BEDSIDE FOR A WHILE. PATIENT WAS TURNED EVERY 2 HOURS. OXYGEN IS GOOD ON ROOM AIR. ISOLATION WAS MAINTAINED. WILL CONTINUE TO MONITOR.
[2017-06-13 20:00] VITALS: BP 148/79
--- NOTE | 2017-06-13 20:00 | NUR ---
RECEIVED REPORT AND ASSUMED CARE OF PT, ASSESSMENT COMPLETED. PT ALERT AND ORIENTED X4 BUT VERY FORGETFUL, ASKING SAME QUESTION SEVERAL TIMES. ASSISTED TO BSC, TRANSFERS WELL BUT SLOW AND UNSURE OF HERSELF. WILL CONT TO MONITOR AND ASSIST NEEDED.
--- NOTE | 2017-06-14 06:40 | NUR ---
SLEPT FAIRLY WELL. WHEN AWAKE ASKING FOR PAIN MED FOR HEADACHE BUT RETURNING BACK TO SLEEP. CONT TO BE UNSURE OF HERSELF WHEN GETTING UP TO BSC, TRANSFERS SLOW AND DOES WELL WITH ENCOURAGEMENT. INCONT OF URINE WHILE SLEEPING. ACHIEVED GOALS OF REST AND COMFORT. HOURLY ROUNDING OBSERVED.
[2017-06-14 09:00] VITALS: BP 126/59
--- NOTE | 2017-06-14 13:40 | NUR ---
CM SPOKE TO THE PATIENT TO DISCUSS DISCHARGE PLANNING NEEDS, AND SKILLED PLACEMENT. PATIENT INFORMS THAT SHE HAD BEEN TO SKILLED AT [facility] IN MARCH 2017 AND WOULD LIKE TO RETURN THERE. CM SPOKE TO MARTHA AT [facility] TO INFORM OF THE REFERRAL AND FAXED PATIENTS FACESHEET, H&P, MED LIST, AND PT NOTES. PATIENT HAS NOT BEEN SEEN BY OT. CM TO FAX OT NOTES WHEN AVAILABLE. CM ALSO ATTEMPTED TO CONTACT PATIENTS TWO TIMES AND LEFT A VOICEMAIL TO RETURN CALL TO DISCUSS SNF WELL. CM WILL REMAIN AVAILABLE TO ASSIST AND FOLLOW NEEDED.
[2017-06-14] MEDS ORDERED: CIPRO500 M1 PO (14:50)
[2017-06-14 14:59] VITALS: BP 126/59
--- NOTE | 2017-06-14 16:41 | NUR ---
PATIENT SITTING UP IN CHAIR ALL SHIFT. IVF INFUSED AND SCHED ABX INFUSED ORDERED. IV DC'D AT DISCHARGED. PATIENT DISCHARGED VIA WHEELCHAIR VAN TO [facility], REPORT CALLED TO [facility]. PATIENT DISCHARGED WITH ALL BELONGINGS.
--- NOTE | 2017-06-24 19:10 | CON ---
[address] [address] CONSULTATION Name: MAXIME JESSICA Room: [address] IN M.R.#: [id number] Admission: 06/10/17 Attend Phys: Shaheen Galicia MD Discharge: 06/14/17 Date of : 42 Report #: [id number] THIS REPORT FOR: //name// CC: Shaheen Abel DATE OF SERVICE: 06/11/2017 HISTORY OF PRESENT ILLNESS: This is a 76-year-old female patient for whom a neurological consultation was requested to evaluate the patient for confusion. She does not believe she is confused. She indicates that the was more concerned with it. She thinks it may have come spontaneously without any trauma. It may have been associated with diarrhea, but diarrhea also can be an independent problem. She also has been under a lot of stress. In anyway, she thinks her confusion is better. REVIEW OF SYSTEMS: Indicate that she had multiple problems in the past. She indicates she has a lifelong history of migraine. They have become worse. She has diarrhea. She had a prior vulvar cancer. Record indicate that she has a history of paroxysmal supraventricular tachycardia, small-bowel obstruction, and constipation. She is also under a lot of stress. She had adhesions in her abdomen in the past. She denies any new visual, ENT, cardiac, respiratory, GI, , musculoskeletal, constitutional, dermatological, hematological, throat, allergic, endocrine symptom, which is associated with present symptomatology and is new. PAST MEDICAL HISTORY: Positive for migraine. FAMILY HISTORY: Negative for early age stroke. SOCIAL HISTORY: She says she does not drink any alcohol, also she does not smoke. PHYSICAL EXAMINATION: The patient's examinations indicate she is alert. She is oriented. Her speech looks unremarkable. Her memory and fund of knowledge is at her baseline. Cranial nerve examination 2-12 mostly looks unremarkable. She looks like she has symmetrical strength, sensation, reflexes and tone in all 4 extremities. There is no papilledema. There is no cerebellar sign. She is moderately built individual who does not have any dysmorphic features of eyes, ears and face. Her vision and hearing looks adequate. There is no carotid bruit. There is no thyroid mass. Cardiac examination does not show any abnormality of the heart sound or murmur. No respiratory difficulty or rhonchi was noticed. Pulses are palpable. She has no edema, cyanosis or jaundice. Blood pressure is 170/73, respirations 16, pulse is 80, and temperature is 98.5. LABORATORY DATA: Her white count is 4.7. Potassium is 3.1. [place] [address] CONSULTATION Name: MAXIME JESSICA Room: [address] IN M.R.#: [id number] Admission: 06/10/17 Attend Phys: Shaheen Galicia MD Discharge: 06/14/17 Date of : 42 Report #: [id number] head demonstrate some ventriculomegaly. She does give a history that she had subdural hematoma in the past after a fall, but that did not cause that much problem. IMPRESSION: 1. Confusion associated with metabolic disturbances and it may be encephalopathy. 2. Ventriculomegaly, probably old and chronic. She does have ambulation difficulty, but that attributed to the knee and I doubt that is because of normal pressure hydrocephalus. We will get an MRI in that regard. 3. Gait abnormality, probably because of focal causes. 4. Diarrhea, which may have aggravated her problem. RECOMMENDATIONS: 1. TSH, vitamin B12. 2. MRI of the brain. 3. EEG. 4. The patient is to work with PT. 5. We will see what this workup shows and then follow up on this patient and leave further recommendations. <ELECTRONICALLY SIGNED> By: Jose Garza MD 06/24/17 1910 1500 [id number] Garza MD /nt
--- NOTE | 2017-06-24 19:10 | EEG ---
[address] [address] EEG STUDY REPORT Name: MAXIME JESSICA Room: [address] IN M.R.#: [id number] Admission: 06/10/17 Attend Phys: Shaheen Galicia MD Discharge: 06/14/17 Date of : 42 Report #: [id number] THIS REPORT FOR: //name// CC: Shaheen Cummingssonal DATE OF SERVICE: 06/12/2017 This patient is being evaluated for confusion. EEG is being done to further evaluate that. EEG was done by placing the electrodes by standard 10-20 system of electrode placement. Both referential and sequential montages were used for recording. Background activity in this patient's EEG goes up to about 9 Hz and 30 microvolt. This is a symmetrical activity. The patient went to sleep that is associated with bilaterally symmetrical sleep spindle and vertex sharp waves. Photic stimulation was unremarkable. Throughout the record, no active epileptiform activity was noticed. IMPRESSION: This patient's EEG is intermixed with theta range slowing on both sides. That is a nonspecific abnormality, which can occur with encephalopathy, effect of psychotropic medication, dementia, etc. Clinical correlation is recommended. <ELECTRONICALLY SIGNED> By: Jose Garza MD 06/24/17 1910 1524 1532Pkarla Garza MD /irene
== END 2017-06-14 16:47 | DRG 391 ==
LOC: M.ERS 17:10 → M.2W 18:35 → M.TBA-ER 18:35 → M.2W 20:40 → M.3W 06-11 15:12
PROVIDERS: Emergency Medicine Emergency Medical Services; Family Medicine; ADMIT Internal Medicine
PROC: 4A00X4Z Measurement of Central Nervous Electrical Activity, External Approach (ICD-10-PCS; principal; 2017-06-12)
DX: A08.4 Viral intestinal infection, unspecified (principal); G93.41 Metabolic encephalopathy; E87.0 Hyperosmolality and hypernatremia; N39.0 Urinary tract infection, site not specified; R26.9 Unspecified abnormalities of gait and mobility; E87.6 Hypokalemia; G31.9 Degenerative disease of nervous system, unspecified; B96.20 Unspecified Escherichia coli [E. coli] as the cause of diseases classified elsewhere; G43.909 Migraine, unspecified, not intractable, without status migrainosus; Z90.49 Acquired absence of other specified parts of digestive tract; Z90.710 Acquired absence of both cervix and uterus; Z79.899 Other long term (current) drug therapy; Z88.0 Allergy status to penicillin; Z80.8 Family history of malignant neoplasm of other organs or systems

== ENCOUNTER → 2017-06-23 | Outpatient (CLI) | payer MEDICARE ==
[~2017-06-23] VITALS: Ht 167.6 cm; Wt 70.3 kg
[~2017-06-23] MED LIST changes: +CEFUROXIME500 MG PO; +CIPRO500 M1 PO; +DIFLUCAN100 MG PO; +FIORINAL WITH1 EACH PO; +HYOSCYAMINE0.125 M1 SUBLING; +LASIX 20 MG TAB20 MG PO; +METROGEL-VAGINA70 GM TOP; +TOPAMAX100 MG PO
[2017-06-23 13:13] VITALS: BP 135/81
[2017-06-23 13:32] LABS: HEMATOCRIT 36.8 % (37.0-47.0); HEMOGLOBIN 12.2 gm/dL (12.0-15.0); MCH 29.3 pg (26.0-34.0); MCHC 33.1 g/dL (28.0-37.0); MCV 88.6 fL (80.0-100.0); MPV 6.4 fl. (7.2-11.1); RBC 4.16 mil/uL (4.20-5.00); RDW-CV 14.2 % (10.5-14.5); WBC 4.8 thou/uL (4.0-11.0)
[2017-06-23 13:38] LABS: APTT 31.9 Seconds (25.0-31.3); INR 1.1; PROTIME 10.5 Seconds (9.20-11.50)
[2017-06-23 13:40] LABS: CALCIUM 8.9 mg/dL (8.5-10.1); CREATININE 0.9 mg/dL (0.6-1.3); POTASSIUM 3.6 mmol/L (3.5-5.1)
[2017-06-23 13:45] LABS: ALBUMIN 3.9 g/dL (3.4-5.0); TOTAL BILIRUBIN 0.2 mg/dL (<0.1-1.0); TOTAL PROTEIN 7.2 g/dL (6.4-8.2)
[2017-06-23 15:26] VITALS: BP 149/73
[2017-06-23 15:49] VITALS: BP 128/65
[2017-06-23 16:00] VITALS: BP 140/72
[2017-06-23 16:15] VITALS: BP 151/76
== END | disposition home or self-care (01) ==
LOC: M.INT 11:40
PROVIDERS: Radiology Vascular & Interventional Radiology
DX: I82.402 Acute embolism and thrombosis of unspecified deep veins of left lower extremity (principal); K92.2 Gastrointestinal hemorrhage, unspecified; I10 Essential (primary) hypertension; Z90.49 Acquired absence of other specified parts of digestive tract; Z90.710 Acquired absence of both cervix and uterus; Z98.890 Other specified postprocedural states; Z88.0 Allergy status to penicillin; Z79.899 Other long term (current) drug therapy

== ENCOUNTER → 2018-01-24 | Outpatient (CLI) | payer MEDICARE ==
[~2018-01-24] VITALS: Ht 167.6 cm; Wt 73.5 kg
[2018-01-24 11:54] LABS: HEMOGLOBIN 13.5 gm/dL (12.0-15.0); MCHC 32.1 g/dL (28.0-37.0); MCV 86.9 fL (80.0-100.0); MPV 7.1 fl. (7.2-11.1); RBC 4.84 mil/uL (4.20-5.00); RDW-CV 14.7 % (10.5-14.5); WBC 7.8 thou/uL (4.0-11.0)
[2018-01-24 11:56] VITALS: BP 121/76; BP 126/74
[2018-01-24 12:06] LABS: CALCIUM 9.2 mg/dL (8.5-10.1); POTASSIUM 3.4 mmol/L (3.5-5.1)
[2018-01-24 12:16] LABS: ALBUMIN 4.2 g/dL (3.4-5.0); TOTAL BILIRUBIN 0.2 mg/dL (<0.1-1.0); TOTAL PROTEIN 7.9 g/dL (6.4-8.2)
[2018-01-24 12:36] LABS: APTT 28.4 Seconds (25.0-31.3); PROTIME 10.3 Seconds (9.20-11.50)
[2018-01-24 14:01] VITALS: BP 107/63
[2018-01-24 14:20] VITALS: BP 106/63
== END | disposition home or self-care (01) ==
LOC: M.INT 11:06
PROVIDERS: Radiology Diagnostic Radiology
DX: Z45.89 Encounter for adjustment and management of other implanted devices (principal); I82.409 Acute embolism and thrombosis of unspecified deep veins of unspecified lower extremity; I10 Essential (primary) hypertension; Z90.49 Acquired absence of other specified parts of digestive tract; Z90.710 Acquired absence of both cervix and uterus; Z87.19 Personal history of other diseases of the digestive system; Z98.890 Other specified postprocedural states; Z79.01 Long term (current) use of anticoagulants; Z88.0 Allergy status to penicillin; Z79.899 Other long term (current) drug therapy; Z87.440 Personal history of urinary (tract) infections

== ENCOUNTER 2018-02-12 11:27 | Inpatient (IN) | payer MEDICARE ==
[~2018-02-12] VITALS: Ht 165.1 cm; Wt 75.3 kg
--- NOTE | ~2018-02-12 | CON ---
[address] [address] CONSULTATION Name: MAXIME JESSICA Room: [address] IN M.R.#: [id number] Admission: 02/12/18 Attend Phys: Virgen Mackey Discharge: Date of : 42 Report #: [id number] THIS REPORT FOR: //name// CC: Andrea Thrasher DATE OF SERVICE: 02/13/2018 REASON FOR CONSULTATION: Evaluate cystitis and vaginitis. HISTORY OF PRESENT ILLNESS: The patient was a 77-year-old with a history of vulvar cancer, status post resection, radiation and chemotherapy nearly 4 years ago. She was recently seen by Oncology with no evidence of recurrence. Over the last several months, she has been dealing with recurrent urinary tract infections. She has had issues with urinary incontinence along with constipation. Most recently, she has been dealing with increased suprapubic pain along with incontinence and vaginitis symptoms. She has been using laxatives and cathartics to help move her bowels. No documented fever, chills or sweats. She had temperature up to 99 degrees on admission. Denies any back or flank pain. There has been no vaginal bleeding or gross hematuria. She lives with her family who is assisting in her care. Most recently, has been on ciprofloxacin. REVIEW OF SYSTEMS: GENERAL: She has had no weight loss, but she has had general debility. She now uses a walker. HEENT: She has migraine headaches. No other visual changes or auditory changes. PULMONARY: Negative. CARDIOVASCULAR: Negative. GASTROINTESTINAL: As above. MUSCULOSKELETAL: Negative. SKIN: Negative. NEUROLOGIC: Negative. PSYCHIATRIC: Negative. ENDOCRINE: Negative. HEMATOLOGIC AND LYMPHATIC: Negative. ALLERGIES: Reports PENICILLIN, although states she tolerates Augmentin. MEDICATIONS: As noted on her MAR, now on meropenem, fluconazole and metronidazole gel. PAST MEDICAL HISTORY: Vulvar cancer, hypertension, coronary artery disease, constipation. She had a small-bowel obstruction, status post laparotomy for lysis of adhesions. Appendectomy, hysterectomy, [place] [address] CONSULTATION Name: MAXIME JESSICA Room: [address] IN [facility]#: [id number] Admission: 02/12/18 Attend Phys: Virgen Mackey Discharge: Date of : 42 Report #: [id number] bleeding. FAMILY HISTORY: cancer. SOCIAL HISTORY: Nonsmoker, no significant alcohol intake. PHYSICAL EXAMINATION: GENERAL: She was alert, cooperative and pleasant, in no acute distress, appeared her stated age. VITAL SIGNS: Afebrile and hemodynamically stable, alert and cooperative, but generalized weakness. SKIN: Unremarkable other than what is described in her pelvic examination. LYMPH: Without palpable adenopathy. HEENT: Eyes, without scleral icterus or conjunctivitis. Mouth without mucositis or lesion. NECK: Supple, without adenopathy, mass or JVD. LUNGS: Clear. HEART: Regular, without murmur, gallop or rub. ABDOMEN: Soft with suprapubic tenderness. She had no hepatosplenomegaly or mass. No CVA tenderness. Vulva was edematous with changes of erythema bilaterally, most consistent with radiation dermatitis. Had similar changes involving her perineum and perianal region. There were no satellite lesions to suggest yeast. Mild tenderness in this region diffusely. RECTAL: Not performed. EXTREMITIES: Without edema, cyanosis or clubbing. NEUROLOGIC: Cranial nerves intact, strength in bilateral upper and lower extremities was equal. Sensation was intact in both upper and lower extremities. Mood was normal. LABORATORY STUDIES: Blood cultures are pending. Urinalysis with wbc's, bacteria, urine culture is pending. Sodium 138, potassium 3.9, bicarbonate 21, creatinine 1, alkaline phosphatase 184. Liver function tests normal. Hemoglobin 13.2, platelet count 377,000, white count was 5.3 with 55% segs, 26% lymphs. CT scan of the abdomen and pelvis showed bladder wall thickening with pericystic fat stranding. No abscess, no ureteral obstruction. IMPRESSION: 1. Cystitis with urinary incontinence and suspected urinary retention component. Vulvovaginitis much of which I suspect is radiation-induced issue. May well have a component of yeast vulvovaginitis as well. Chronic pelvic pain. 2. 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 RECOMMENDATION AND PLAN: We will continue antibiotic therapy pending culture results. Agree with antifungal therapy. Continue with topical metronidazole, seems reasonable as well. Place Lomeli catheter for now. May need cystoscopy to further evaluate for radiation cystitis component. Agree with Urology [address] [place] [address] CONSULTATION Name: MAIXME JESSICA Room: [address] IN M.R.#: [id number] Admission: 02/12/18 Attend Phys: Virgen Mackey Discharge: Date of : 42 Report #: [id number] recommendations for postvoid residual checks. We will await initial results of both postvoid residuals and urine culture results. By: [id number] Velazquez MD /nt
--- NOTE | ~2018-02-12 | CON ---
[address] [address] CONSULTATION Name: MAXIME JESSICA Room: [address] ADM IN M.R.#: [id number] Admission: 02/12/18 Attend Phys: Virgen Mackey Discharge: Date of : 42 Report #: [id number] THIS REPORT FOR: //name// CC: Andrea Thrasher DATE OF SERVICE: 02/14/2018 REASON FOR CONSULTATION: History of vulvar cancer. REQUESTING PHYSICIAN: Dr. Thrasher. HISTORY OF PRESENT ILLNESS: The patient is a pleasant 77-year-old woman with history of vulvar cancer treated with chemoradiation more than 3 years ago. She does not have any recurrence of disease. She is admitted to the hospital now with cystitis. 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 Oncology consult is requested. She is doing well. She seems forgetful. She does not remember her oncologist's name, although she thinks that she was recently seen in Oncology Clinic and was told that she does not have any evidence of recurrence of disease. Denies cough, shortness of breath, fever or chills. PAST MEDICAL HISTORY: Significant for recurrent urinary tract infections, vulvar carcinoma, history of paroxysmal supraventricular tachycardia, history of small bowel obstruction. SOCIAL HISTORY: The patient seems not a very good historian. She seems forgetful today, not sure if this is her baseline. PHYSICAL EXAMINATION: GENERAL: Reveals a well-developed, well-nourished female, not in acute distress. VITAL SIGNS: Blood pressure 106/56, heart rate is 72, temperature 97.9. NECK: Supple. HEART: Normal S1, S2. LUNGS: Clear. ABDOMEN: Soft. There is no supraclavicular lymphadenopathy. EXTREMITIES: Lower extremities, no edema. SKIN: Does not reveal rash. LABORATORY DATA: WBC 5.3, hemoglobin 13.2, platelets 377. CT of abdomen and pelvis shows thickening of bladder wall secondary to severe acute cystitis. ASSESSMENT AND PLAN: 1. History of vulvar cancer, no evidence of disease. At this point, [place] [address] CONSULTATION Name: BOBMAXIME SALMERON Room: [address] IN [facility].#: [id number] Admission: 02/12/18 Attend Phys: Virgen Mackey Discharge: Date of : 42 Report #: [id number] no signs of recurrence of disease. No suggestions from oncological standpoint. 2. Acute cystitis. Agree with management as per Urology . Thank you very much for allowing me to participate in care of this patient. By: [id number] Nicolas MD /nt
[~2018-02-12 11:27] MED LIST changes: -CEFUROXIME500 MG PO; -DIFLUCAN100 MG PO; -HYOSCYAMINE0.125 M1 SUBLING; -METROGEL-VAGINA70 GM TOP
[2018-02-12 12:02] VITALS: BP 125/71
[2018-02-12 12:32] LABS: ABSOLUTE EOSINOPHILS 0.3 thou/uL (0.0-0.7); ABSOLUTE LYMPHOCYTES 1.4 thou/uL (0.8-5.3); ABSOLUTE MONOCYTES 0.6 thou/uL (0.0-1.2); BASOPHILS 0.6 %; EOSINOPHILS 6.6 %; HEMATOCRIT 40.1 % (37.0-47.0); HEMOGLOBIN 13.2 gm/dL (12.0-15.0); MCH 28.4 pg (26.0-34.0); MONOCYTES 11.3 %; MPV 6.7 fl. (7.2-11.1); NUCLEATED RBCS 0 /100WBC; PLATELET COUNT* 377 thou/uL (150-400); POLYS 55.5 %; RBC 4.66 mil/uL (4.20-5.00); RDW-CV 14.9 % (10.5-14.5); WBC 5.3 thou/uL (4.0-11.0)
[2018-02-12 12:39] LABS: CALCIUM 8.9 mg/dL (8.5-10.1); POTASSIUM 3.9 mmol/L (3.5-5.1)
[2018-02-12 12:44] LABS: ALBUMIN 3.8 g/dL (3.4-5.0); TOTAL BILIRUBIN 0.2 mg/dL (<0.1-1.0); TOTAL PROTEIN 7.8 g/dL (6.4-8.2)
[2018-02-12 12:45] LABS: URINE BILIRUBIN NEGATIVE (Negative); URINE BLOOD 3+ (Negative); URINE CLARITY CLOUDY; URINE COLOR YELLOW; URINE GLUCOSE-RANDOM NEGATIVE (Negative); URINE KETONES NEGATIVE (Negative); URINE LEUKOCYTES-REFLEX 1+ (Negative); URINE PROTEIN 2+ (Negative); URINE SPECIFIC GRAVITY >= 1.030 (1.005-1.030); URINE UROBILINOGEN 0.2 E.U./dl (0.2-1.0)
[2018-02-12 12:49] LABS: URINE NITRITE-REFLEX POSITIVE (Negative)
[2018-02-12 12:56] LABS: CASTS None Seen /LPF (None Seen); CRYSTALS None Seen /LPF (None Seen); MUCUS None Seen strn/LPF (None Seen); SQUAMOUS 4-10 Moderate /LPF (0-3); URINE RBC >20 Many /HPF (0-2); URINE WBC-REFLEX >25 Many /HPF (0-5)
[2018-02-12 16:48] VITALS: BP 105/55
[2018-02-12 16:55] VITALS: BP 129/65
--- NOTE | 2018-02-12 18:23 | NUR ---
PATIENT ADM TO UNIT AT 1650, BEDSIDE REPORT FROM TASHI SALDANA RN. PATIENT A&OX4, HX OF DEMENTIA. ROOM AIR, IV RIGHT AC SALINE LOCK. UP WITH ASSISTX1 WITH WALKER. C/O URINARY FREQUENCY, DRIBBLING, RETENTION, AND BURNING WITH URINATION. VAGINAL AREA REDENED, AND WARM. NO OTHER C/O PAIN/N/V. NO OTHER CONCERNS AT THIS TIME. ADM ASSESMENT COMPLETED AND DOCUMENTED. APPROPRAITE AND COOPORATIVE WITH CARE.
[2018-02-13 04:13] VITALS: BP 120/66
[2018-02-13 04:14] VITALS: BP 120/66
--- NOTE | 2018-02-13 04:21 | NUR ---
ASSUMED PT CARE REPORT RECEIVED FROM NURSE AT 1915 PT IS AOX4. NO ON MOMENT. NO COMPLAINT OF PAIN UMTIL 230. FENTANYL WAS ADMINISTERED ORDERED. VSS. ON RA AND SAT IS ABOVE 95%.COCCYX WOUND IN PT ALSO REVEIVED HER IV ABX ORDERED. NEW ORDERS RECEIVED FROM DR EMERALD VENEGAS. ASSESSMENT PERFORMED. PT HAS BAD VAGINAL INFECTION. WAS CHECKED FOR INCONTENCE FREQUENTLY. PAD CHANGED NEEDED. SLEEPING PILL GIVEN. PT SLEPT WELL ASFTER SELEPING PILL. PT ALSP HAD A SMALL BM BROWN COLOR. IV LINE PATENT. WILL CONTINUE TO MONITOR.
--- NOTE | 2018-02-13 07:01 | NUR ---
IV MEROPENEM NOT AVAILABLE IN [place]. PHARMACY CALLED THIS MORNING FOR PREP.
[2018-02-13 16:00] VITALS: BP 127/78
[2018-02-13 20:00] VITALS: BP 122/68
--- NOTE | 2018-02-14 04:17 | NUR ---
THIS NURSE ASSUMES CARE OF PT 02/13/18 AT 1900, PT IS ALERT AND ORIENTED X4, PLEASANT, PT COMPLAINS OF VAGINAL PAIN THAT SHE RATES 9/10, SHE REPORTS THAT THE IV PAIN MEDICATION SHE HAS RECEIVED HELPS BUT ONLY FOR A "LITTLE WHILE" PT IS MEDICATED, THIS NURSE THEN LOOKS AT UROLOGY CONSULT NOTES AND NOTIFIES PT THAT IT IS SUGGESTED THAT A COKER CATHETER BE REPLACED AFTER A COUPLE OF POST VOID RESIDUALS ARE OBTAINED, THESE WERE OBTAINED BY THE DAY SHIFT NURSE, THE PT HAS NOT OBJECTION TO GETTING A COKER CATHETER SHE HAS BEEN INCONTINENT CONTRIBUTING TO HER DISCOMFORT IN THE STACEY AND VAGINAL AREAS, DR WILKINSON CALLED TO REQUEST BETTER PAIN CONTROL AND PLACEMENT OF COKER CATH SUGGESTED BY UROLOGY, NEW ORDERS RECEIVED, NEW IV PLACED TO RT LOWER FA DUE TO INFILTRATION OF PREVIOUS IV, PT REMAINS ON ROOM AIR, LUNGS CTA, HEART RRR, NO EDEMA, PT IS ABLE TO REST THROUGHOUT THE REST OF THIS NIGHT WITHOUT COMPLAINTS OF BURNING AND URGENCY AFTER PLACEMENT OF COKER, NO FURTHER REQUEST FOR PAIN MEDICATION OF YET, PT IS NOW RESTING QUEITLY WITH BED IN LOWEST POSITION, BED ALARM ON, CALL LIGHT WITHIN REACH LIGHT WITHIN REACH
[2018-02-14 08:45] VITALS: BP 106/56
[2018-02-14 15:51] VITALS: BP 97/63
--- NOTE | 2018-02-14 17:15 | NUR ---
SW to follow to complete assessment and assist with safe dc planning. Pt home with spouse and has hx of SNF at [facility] and hx of .
--- NOTE | 2018-02-14 18:03 | NUR ---
PATIEN HAS BEEN A/O X 4 THIS SHIFT. MEDICATED FOR MIGRAINE X 1 WITH RELIEF. MEDICATED FOR PERINEAL PAIN WITH PARTIAL RELIEF. SALINE LOCK PATENT TO RIGHT FA, IV ANTIBIOTICS AND ANTIFUNGAL INFUSED. COKER IN PLACE. UP TO CHAIR THIS SHIFT. APPETITE GOOD. PLACED IN CONTACT ISOLATION FOR HX OF MRSA. PATIENT STARTED ON MIRALAX FOR BOWEL REGIMEN. PATIENT UPDATED ON PLAN OF CARE. HOURLY ROUNDING COMPELTED. CALL LIGHT WITHIN REACH. WILL CONTINUE WITH PLAN OF CARE.
[2018-02-14 19:50] VITALS: BP 107/55
--- NOTE | 2018-02-15 05:56 | NUR ---
PT SLEPT MOST OF SHIFT. ASSESSMENT DOCUMENTED. MEDS GIVEN PER E-MAR. IV PATENT. ABX INFUSED. PT REPORTED MIGRANE, MIGRANE MEDICATION GIVEN PER PATIENT REQUEST. PT REPOSITIONED THROUGH NIGHT, PT LEAKED URINE AROUND COKER THORUGH NIGHT. COKER INPLACE AND DRAINING DEPENDANTLY. WILL CONTINUE WITH PLAN OF CARE.
[2018-02-15 08:15] VITALS: BP 136/70
--- NOTE | 2018-02-15 11:04 | NUR ---
SW met with pt to complete assessment and discuss safe dc planning. Pt not medically ready to dc at this time according to Dr Thrasher due to pt lab results. Pt hopeful to dc home with son tomorrow. Pt said her visits her but that she lives at home with son. Pt sister in law was visiting pt. Pt said she wondered if she could have her pain meds; SW informed pt nurse . No other needs or concerns expressed at this time. SW to continue to follow.
[2018-02-15 11:10] LABS: ABSOLUTE EOSINOPHILS 0.5 thou/uL (0.0-0.7); ABSOLUTE LYMPHOCYTES 1.4 thou/uL (0.8-5.3); ABSOLUTE MONOCYTES 0.4 thou/uL (0.0-1.2); ABSOLUTE NEUTROPHILS 3.3 thou/uL (1.6-8.1); BASOPHILS 0.7 %; EOSINOPHILS 9.5 %; HEMATOCRIT 40.3 % (37.0-47.0); HEMOGLOBIN 12.9 gm/dL (12.0-15.0); LYMPHOCYTES 24.4 %; MCH 27.9 pg (26.0-34.0); MCV 87.1 fL (80.0-100.0); MONOCYTES 7.1 %; MPV 6.5 fl. (7.2-11.1); NUCLEATED RBCS 0 /100WBC; PLATELET COUNT* 364 thou/uL (150-400); POLYS 58.3 %; RBC 4.63 mil/uL (4.20-5.00); RDW-CV 15.3 % (10.5-14.5); WBC 5.6 thou/uL (4.0-11.0)
[2018-02-15 11:22] LABS: ALBUMIN 3.1 g/dL (3.4-5.0); CALCIUM 8.7 mg/dL (8.5-10.1); CREATININE 1.2 mg/dL (0.6-1.3); MAGNESIUM 2.1 mg/dL (1.8-2.4); POTASSIUM 4.2 mmol/L (3.5-5.1); TOTAL BILIRUBIN 0.1 mg/dL (<0.1-1.0); TOTAL PROTEIN 6.6 g/dL (6.4-8.2)
--- NOTE | 2018-02-15 14:08 | NUR ---
PATIENT INCONTINENT OF LARGE AMOUNT OF STOOL, DURING CATHETER CARE PATIENT'S COKER BECAME DISLODGED BALLOON FULLY INTACT. PATIENT STATES NOT SURE HOW COKER CAME OUT. NO BLEEDING NOTED. WILL INFORM UROLOGY OF COKER BEING DISLODGED.
[2018-02-15 15:59] VITALS: BP 98/62
--- NOTE | 2018-02-15 17:22 | NUR ---
PATIENT HAS BEEN A/O, FORGETFUL PERIODICALLY THROUGHOUT THE DAY. IV ANTIBIOTICS CHANGED PER ID THIS SHIFT. PATIENT WITH COMPLAINTS OF HEADACHE/MIGRAINE THIS SHIFT. GIVEN HOME MIGRAINE MEDICINE ORDERED. PATIENT INFORMED OF WHAT PRESCRIPTION BOTTLE STATED OF DIRECTIONS ON HOW TO CORRECTLY TAKE MEDICATIONS, AND PATIENT REFUSING TO BELIEVE WHAT BOTTLE STATES. EXPLAINED TO PATIENT, THIS RN SPOKE WITH PHYSICIAN AND ORDERS RECEIVED FOR IV COMPAZINE TO HELP WITH MIGRAINE, ADAMANTLY REFUSED MEDICATION. PATIENT'S COKER CATHETER DISLODGED, UROLOGY INFORMED AND ORDERS RECEIVED. PATIENT ABLE TO HAVE BM THIS SHIFT X 2. PATIENT'S AT BEDSIDE THIS SHIFT. REMAINS IN CONTACT ISOLATION FOR HX OF MRSA. FALL PRECAUTIONS IN PLACE. HOURLY ROUNDING COMPLETED. CALL LIGHT WITHIN REACH. WILL CONTINUE WITH PLAN OF CARE.
[2018-02-15 21:32] VITALS: BP 93/54
--- NOTE | 2018-02-16 05:28 | NUR ---
PT SLEPT MOST OF SHIFT. ASSESSMENT DOCUMENTED. MEDS GIVEN PER E-MAY. IV PATENT. PT REPORTED HEADACHE IMPROVED. PT INCONTINENT THROUGH NIGHT. PT REPOSTIONED. WILL CONTINUE WITH PLAN OF CARE.
[2018-02-16 08:00] VITALS: BP 123/68
[2018-02-16 11:59] VITALS: BP 123/68
[2018-02-16] MEDS ORDERED: METROGEL-VAGINA70 GM TOP (12:07)
[2018-02-16] MEDS ORDERED: CEFUROXIME500 MG PO (12:09)
[2018-02-16] MEDS ORDERED: DIFLUCAN100 MG PO (12:10)
[2018-02-16] MEDS ORDERED: HYOSCYAMINE0.125 M1 SUBLING (12:16)
[2018-02-16 14:26] VITALS: BP 123/68
[2018-02-16 14:56] VITALS: BP 123/68
[2018-02-16 15:00] VITALS: BP 123/68
[2018-02-16 15:03] VITALS: BP 123/68
--- NOTE | 2018-02-16 15:08 | NUR ---
ESTRELLA was informed that pt was ready to dc today. ESTRELLA discussed pt situation with Dr Carter. ESTRELLA called Kami at [facility] who reviewed referral and said that they would not have a bed available until Wednesday. ESTRELLA faxed referral to [facility] at pt family request (SW received message from pt dtr Iris and tried to call back twice but her phone was busy). SW received call from Lisette Sánchez and [facility] who said that they might be able to accept pt on Wednesday. Pt, Dr Carter and pt family in agreement with pt to dc home today with HH services to follow; ESTRELLA arranged HH services with [facility] and then pt to transition to SNF/LTC when available. ESTRELLA called and spoke with pt maggy Fontaine and he is in agreement with this plan. ESTRELLA discussed with pt nurse who is aware of plan. SW faxed referral and orders to needed facilites for continuum of care. ESTRELLA followed up with pt again about dc planning for today. ESTRELLA explained HH services also can assist with coordinating transition to SNF/LTC when needed. ESTRELLA provided number information on dc paperwork to be provided by pt nurse to pt . Pt to provide [facility]. [phone], [facility] Princess [phone] fax [phone] [facility] [phone] [facility] ph [phone] fax [phone] Pt maggy Fontaine ph [phone] address: [facility] [place] [address]
--- NOTE | 2018-02-16 15:35 | NUR ---
ASSUMMED CARE OF PT AT 0730, PT ALERT, ORIENTED, FORGETFUL, PT COMPLAINED OF HEADACHE ALL SHIFT, MEDICATED PER ORDER, PAIN MEDS INCREASED PER PHYSICIAN, BUT PT STATES STILL NOT OFTEN SHE TAKES AT HOME, ICE BAG OFFERED BUT REFUSED, PT WAS UP IN CHAIR FOR INTERVAL, TRANSFERRED WELL WITH GB WALKER, PT TAKING FOOD AND FLUIDS WELL, PT INCONTINENT OF LARGE AMOUNT OF URINE THIS AM, VOID PER TOILET THIS PM, HAD BM X 1 ON TOILET, WALKED PT TO BATHROOM, NURSE FOUND BOTH IN BATHROOM, IINSTRUCTED THAT THEY NEEDED TO ASK FOR HELP, STATED THEY WERE FINE AND HE WAS HELPING HER AT HOME ANYWAY. USING CALL LIGHT REINFORCED, ALARM ON FOR SAFETY, SALINE LOCK PATENT, VULVA AREA REMAINS RED AND HARD IN AREAS, PT STATES IT IS BETTER, PT DID COMPLAIN OF NAUSEA X 1, MEDICATED PER ORDER, ORDERS OBTAINED FOR DISCHARGE, PT TO BE DISCHARGED TO DAUGHTER IN LAWS HOUSE UNTIL EARLY NEXT WEEK AND THEN WILL GO TO FACILITY, AND SON GIVEN PHONE NUMBERS TO FACILITIES PER CASE MANAGEMENT, SALINE LOCK REMOVED WITH NEEDLE INTACT, DISCHARGE INSTRUCTIONS GIVEN TO PT AND SPOUSE, DISCUSSED MEDICATIONS, WHEN THEY ARE DUE TO BE TAKEN , FOLLOW UP APPTS, WHEN TO CALL PHYSICIAN, HOME HEALTH, SCRIPTS GIVEN TO PT, PT AND SPOUSE STATE THE UNDERSTAND, DISCHARGE PACKET GIVEN TO PT, BELONGINGS WITH PT AND DISCHARGE TO MAIN ENTRANCE IN WHEELCHAIR.
== END 2018-02-16 15:00 | disposition home health service (06) | DRG 690 ==
LOC: M.ERS 11:27 → M.3W 15:25 → M.TBA-ER 15:25 → M.3W 16:51
PROVIDERS: Personal Emergency Response Attendant; ADMIT Internal Medicine
DX: N30.00 Acute cystitis without hematuria (principal); J98.11 Atelectasis; N76.0 Acute vaginitis; B37.3 Candidiasis of vulva and vagina; G43.909 Migraine, unspecified, not intractable, without status migrainosus; N39.41 Urge incontinence; B96.20 Unspecified Escherichia coli [E. coli] as the cause of diseases classified elsewhere; Z90.49 Acquired absence of other specified parts of digestive tract; Z90.710 Acquired absence of both cervix and uterus; Z79.899 Other long term (current) drug therapy; Z88.0 Allergy status to penicillin; Z85.44 Personal history of malignant neoplasm of other female genital organs; Z92.21 Personal history of antineoplastic chemotherapy; Z92.3 Personal history of irradiation; Z80.9 Family history of malignant neoplasm, unspecified; Z28.21 Immunization not carried out because of patient refusal